=== PATIENT | male | born 1935 | race Caucasian/White ===

== ENCOUNTER → 2018-06-13 08:06 | Outpatient (CLI) | payer OTHER, SELFPAY ==
[2018-06-13 09:52] LABS: Add Manual Diff / Slide Review NO; Basophils Percent Auto 0.8 % (0-2); Hematocrit 44.5 % (41-53); Lymphocytes Percent Auto 27.4 % (25-40); Mean Corpuscular HGB Conc 33.7 % (30-36); Mean Corpuscular Hemoglobin 32.9 PG (26-34); Mean Corpuscular Volume 97.5 fL (80-100); Monocytes Percent Auto 11.2 % (3-14); Neutrophils Absolute Auto 2400 /uL (3000-5900); Neutrophils Percent Auto 57.6 % (50-75); Platelet Count 222 X10^3/uL (150-400); Red Blood Cell Count 4.57 X10^6/uL (4.5-5.9); Red Cell Distribution Width 13.5 % (11.6-14.8); White Blood Cell Count 4.2 X10^3/uL (4.5-11.0)
[2018-06-13 10:06] LABS: Cholesterol 212 mg/dL (140-199); HDL Cholesterol 88 mg/dL (40-60); LDL Cholesterol Calculated 111 mg/dL (<100); Triglycerides 65 mg/dL (35-150)
[2018-06-13 10:45] LABS: Thyroid Stimulating Hormone 3.51 uIU/mL (0.47-4.68)
== END ==
PROVIDERS: Family Provider Family Medicine; PCP Family Medicine; Visit Provider Family Medicine
DX: E78.2 Mixed hyperlipidemia (principal)
CPT/HCPCS: 36415; 80061; 84443; 85025

== ENCOUNTER 2018-08-21 08:57 | Day surgery (SDC) | payer OTHER, SELFPAY ==
[2018-08-21] MEDS: PROPARACAINE 0.5% OPHTH SOL 2 DROPS EYE-OP (09:55)
[2018-08-21 09:57] VITALS: BP 150/84; PULSE 62; RESP 16; TEMP 36.6; O2SAT 100; BMI 21.7
[2018-08-21] MEDS: CATARACT EYE COMPOUND (10 DROPS/SYRINGE) 3 DROPS EYE-OP (10:06)
--- NOTE | 2018-08-21 11:03 | P.OP.PRE_ITS ---
Pre-operative Note Interval Note Changes: No
--- NOTE | 2018-08-21 11:03 | PM.PREOP ---
Pre-operative Note Interval Note Changes: No
--- NOTE | 2018-08-21 11:11 | P.OP.PRE_ITS ---
Pre-operative Note Interval Note Changes: No
--- NOTE | 2018-08-21 11:11 | PM.PREOP ---
Pre-operative Note Interval Note Changes: No
--- NOTE | 2018-08-21 11:11 | PM.OP.1 ---
Operative Date/Time/Diagnoses Pre-op diagnosis: Nuclear cataract right eye Procedure & Clinicians Procedure: Cataract Surgery Same procedure as scheduled: Yes Surgeon: Dre Mcleod Anesthesia Type: MAC +/- and Sedation Operative Notes Procedure in detail: Patient brought to the operating suite. Tetracaine drops placed in the right eye. Marking instrument was used to david the verticle and horizontal meridian Patient was prepped and draped in sterile manner. Wire lid speculum was placed in the eye. Betadine drops were placed on the eye. This was irrigated. Lidocaine jelly was placed on the eye. A paracentesis port was created with a side-port blade. 0.1 mL 1% preservative free lidocaine was injected into the anterior chamber. The anterior chamber was deepened with viscoelastic. 2.6 mm keratome was used to create a temporal clear corneal incision. Cystotome and Utrata forceps were used to create continuous tear capsulorrhexis. Balanced salt solution was used to hydro dissect the nucleus. The phacoemulsification handpiece was inserted and the nucleus was removed using the stop and chop technique. The irrigation aspiration handpiece was inserted and the remaining cortex was removed. Anterior chamber was deepened with viscoelastic. An Lauren [id number] intraocular lens with a power of 16.5 was injected into the capsular bag. Irrigation aspiration handpiece was inserted and the remaining viscoelastic was removed. The lens was rotated to the 180 degree meridian. Incision was hydrated with balanced salt solution and found to be leak free with pressure with Weck-Cheryl sponges. 0.1 mL Vigamox injected anterior chamber. 0.3 mL Kenalog 10 mg was injected subconjunctivally. Lid speculum was removed. The patient left the operating room in excellent condition. Complications: none Condition: stable Disposition: same day surgery
[2018-08-21] MEDS: PHENYLEPHRINE/LIDOCAINE VIAL (OR) 0.2 ML EYE-OP (11:23)
[2018-08-21] MEDS: LIDOCAINE JELLY 2% 5 ML 1 APPLIC TOP (11:24)
[2018-08-21] MEDS: TRIAMCINOLONE 50 MG/5 ML VIAL INJ (11:24)
[2018-08-21] MEDS: CHONDROIDTIN/SOD HYALURONATE 1.05 ML SYRINGE INTRAOCULA (11:24)
[2018-08-21] MEDS: MOXIFLOXACIN OPHTH DROPS 3 ML BOTTLE 2 DROPS INJ (11:24)
[2018-08-21] MEDS: BALANCED SALT IRRIG SOLN NO.2 500 ML, EPINEPHrine 1 MG IRR (11:25)
[2018-08-21] MEDS: TETRACAINE 0.5% OPHTH DROPS 15 ML 2 DROPS EYE-RIGHT (11:25)
[2018-08-21 11:40] VITALS: BP 107/69; PULSE 52; RESP 18; TEMP 36.6; O2SAT 99
[2018-08-21 11:55] VITALS: BP 119/66; PULSE 59; RESP 16; TEMP 36.7; O2SAT 99
== END 2018-08-21 12:00 ==
LOC: OR 08:58
PROVIDERS: Family Provider Family Medicine; PCP Family Medicine; Visit Provider Ophthalmology
DX: H25.11 Age-related nuclear cataract, right eye (principal)
CPT/HCPCS: J0171; J2250; J3010; J3301; V2787

== ENCOUNTER 2018-09-04 08:56 | Day surgery (SDC) | payer OTHER, SELFPAY ==
[2018-09-04 09:27] VITALS: BMI 22.6
[2018-09-04] MEDS: PROPARACAINE 0.5% OPHTH SOL 2 DROPS EYE-OP (09:27)
[2018-09-04] MEDS: CATARACT EYE COMPOUND (10 DROPS/SYRINGE) 3 DROPS EYE-OP ×2 (09:30→09:44)
[2018-09-04 09:34] VITALS: BP 140/79; PULSE 62; RESP 18; TEMP 36.5; O2SAT 99
--- NOTE | 2018-09-04 10:14 | P.OP.PRE_ITS ---
Pre-operative Note Interval Note Changes: No
--- NOTE | 2018-09-04 10:14 | PM.PREOP ---
Pre-operative Note Interval Note Changes: No
--- NOTE | 2018-09-04 10:14 | PM.OP.1 ---
Operative Date/Time/Diagnoses Pre-op diagnosis: Nuclear Cataract Left eye Post-op diagnosis: same Procedure & Clinicians Surgeon: Dre Mcleod Anesthesia Type: MAC +/- and Sedation Operative Notes Procedure in detail: Patient brought to the operating suite. Tetracaine drops placed in the left eye. Marking instrument was used to david the vertcal and horizontal meridian. Patient was prepped and draped in sterile manner. Wire lid speculum was placed in the eye. Betadine drops were placed on the eye. This was irrigated. Lidocaine jelly was placed on the eye. A paracentesis port was created with a side-port blade. 0.1 mL 1% preservative free lidocaine was injected into the anterior chamber. The anterior chamber was deepened with viscoelastic. 2.6 mm keratome was used to create a temporal clear corneal incision. Cystotome and Utrata forceps were used to create continuous tear capsulorrhexis. Balanced salt solution was used to hydro dissect the nucleus. The phacoemulsification handpiece was inserted and the nucleus was removed using the stop and chop technique. The irrigation aspiration handpiece was inserted and the remaining cortex was removed. Anterior chamber was deepened with viscoelastic. An Lauren [id number] intraocular lens with a power of 20. was injected into the capsular bag. Irrigation aspiration handpiece was inserted and the remaining viscoelastic was removed. The lens was rotated to the 180 degree meridian. Incision was hydrated with balanced salt solution and found to be leak free with pressure with Weck-Cheryl sponges. 0.1 mL Vigamox injected anterior chamber. 0.3 mL Kenalog 10 mg was injected subconjunctivally. Lid speculum was removed. The patient left the operating room in excellent condition. Complications: none Condition: stable Disposition: same day surgery
--- NOTE | 2018-09-04 10:40 | SUR.OPER ---
Supine on eye stretcher, head on extension cradle secured with tape. Arms tucked at sides with blanket. Pillow under knees.
[2018-09-04] MEDS: LIDOCAINE JELLY 2% 5 ML 1 APPLIC TOP (10:41)
[2018-09-04] MEDS: CHONDROIDTIN/SOD HYALURONATE 1.05 ML SYRINGE INTRAOCULA (10:41)
[2018-09-04] MEDS: PHENYLEPHRINE/LIDOCAINE VIAL (OR) 0.2 ML EYE-OP (10:42)
[2018-09-04] MEDS: MOXIFLOXACIN OPHTH DROPS 3 ML BOTTLE 2 DROPS INJ (10:42)
[2018-09-04] MEDS: TRIAMCINOLONE 50 MG/5 ML VIAL INJ (10:43)
[2018-09-04] MEDS: TETRACAINE 0.5% OPHTH DROPS 15 ML 2 DROPS EYE-LEFT (10:43)
[2018-09-04] MEDS: BALANCED SALT IRRIG SOLN NO.2 500 ML, EPINEPHrine 1 MG IRR (10:44)
[2018-09-04 10:54] VITALS: BP 106/71; PULSE 54; RESP 16; TEMP 36.6; O2SAT 99
[2018-09-04 11:02] VITALS: BP 134/78
== END 2018-09-04 11:10 | disposition home or self-care (01) ==
PROVIDERS: PCP Family Medicine; Visit Provider Ophthalmology
DX: H25.12 Age-related nuclear cataract, left eye (principal)
CPT/HCPCS: J0171; J2250; J3010; J3301; V2787

== ENCOUNTER 2021-01-16 15:20 | Inpatient (IN) | payer MEDICARE, SELFPAY ==
[2021-01-16] VITALS (10 sets, daily range): BP systolic 102–167; BP diastolic 47–82; PULSE 51–94; RESP 14–19; TEMP 36.6–38.8; O2SAT 94–98; BMI 21.7; BMI 22.5
--- NOTE | 2021-01-16 | PATH_ITS ---
[facility] Accession Number: [id number] . 01 Material submitted: . appendix - APPENDIX . 02 Diagnosis: Appendix, Appendectomy: Marked acute appendicitis with mural abscess and serositis. No evidence of neoplasm. MRV 01/20/2021 1254 Local . 02 Electronically signed: . Kirk Irby MD, PhD, Pathologist NPI- [id number] . 01 Gross description: . The specimen is received in formalin, labeled appendix and consists of a 6.5 cm in length by 1.5 cm in diameter vermiform appendix with attached zhang-yellow lobulated mesoappendix measuring 4.5 x 2.0 x 1.0 cm. The serosa is zhang-pink and there is a 1.0 x 0.7 cm perforation site with surrounding adherent purulent exudate, located 4.5 cm from the margin. Sectioning reveals a zhang mucosa and a lumen measuring up to 1.0 cm in diameter. There is a 0.8 x 0.7 x 0.7 cm mucoid cyst adjacent to the tip of the appendix. The vermiform appendix is entirely submitted in cassettes A1-A8. ([id number]) /MRV 01/19/2021 1227 Local . 02 Pathologist provided ICD-10: K35.80 . 02 CPT . 988484 Performed at: 01 [facility] [address] [id number] MD Gregorio Bazan MD Phone: [phone] Performed at: 02 [facility] [place] [id number] [place], [place] [id number] MD Rachell Bauer MD Phone: [phone]
[2021-01-16 17:11] LABS: Bacteria Urine None Seen; RBC Urine None Seen (0-5/HPF); WBC Urine None Seen (0-5/HPF)
[2021-01-16 17:21] LABS: Appearance Urine UA CLEAR; Bilirubin Urine UA NEGATIVE (NEGATIVE); Color Urine UA YELLOW; Glucose Urine UA NEGATIVE (Negative); Ketones Urine UA 1+ (NEGATIVE); Leukocyte Esterase Urine UA NEGATIVE (NEGATIVE); Nitrite Urine UA NEGATIVE (Negative); Occult Blood Urine UA TRACE-INTACT (Negative); Protein Urine UA NEGATIVE (Negative); Urobilinogen Urine UA 0.2 E.U./dL (0.2); pH Urine UA 5.5 (4.5-8.0)
[2021-01-16 17:28] LABS: Add Manual Diff / Slide Review NO; Basophils Absolute Auto 0 /uL (0-100); Basophils Percent Auto 0.4 % (0-2); Eosinophils Absolute Auto 100 /uL (0-450); Eosinophils Percent Auto 0.7 % (2-4); Hematocrit 43.8 % (41-53); Hemoglobin 14.7 g/dL (13.5-17.5); Lymphocytes Absolute Auto 800 /uL (1100-4500); Lymphocytes Percent Auto 7.7 % (25-40); Mean Corpuscular HGB Conc 33.6 % (30-36); Mean Corpuscular Hemoglobin 32.9 PG (26-34); Mean Corpuscular Volume 97.9 fL (80-100); Monocytes Absolute Auto 500 /uL (0-900); Monocytes Percent Auto 4.8 % (3-14); Neutrophils Absolute Auto 9000 /uL (1500-7000); Neutrophils Percent Auto 86.4 % (50-75); Platelet Count 211 X10^3/uL (150-400); Red Blood Cell Count 4.47 X10^6/uL (4.5-5.9); Red Cell Distribution Width 13.3 % (11.6-14.8); White Blood Cell Count 10.4 X10^3/uL (4.5-11.0)
[2021-01-16] MEDS: SODIUM CHLORIDE 0.9% 1,000 ML 1000 ML IV ×2 (17:28→18:54)
[2021-01-16] MEDS: MORPHINE 2 MG/ML INJ IV (17:28)
[2021-01-16] MEDS: ONDANSETRON 4 MG/2 ML INJ IV ×2 (17:28→23:13)
--- NOTE | 2021-01-16 17:30 | ED_ITS ---
HPI - Abdominal Pain <BRE Acosta- - Last Filed: 01/16/21 19:53> General Chief Complaint: Abdominal Pain Stated Complaint: sudden, sharp, lwr right abdominal pain Time Seen by Provider: 01/16/21 16:49 Source: patient and family Mode of arrival: Ambulatory Limitations: no limitations History of Present Illness HPI narrative: The patient is an 85-year-old male nonsmoker with history of transient global amnesia who presents with his for sudden complaint of right lower quadrant pain approximately 90 minutes prior to arrival. He states he was sitting working on his computer and felt sudden pain in his right lower quadrant extending down. He states that wrapped to his testicles. He denies any dysuria urgency or frequency. He denies any rectal pain or pressure with bowel movements. States his bowel movements are normal. Complains of slight nausea, no vomiting. No fevers, did have some chills. Denies any history of abdominal surgeries. Only daily medication is a multivitamin. He does state that he drinks about half a L of red wine a night Related Data Home Medications Medication Instructions Recorded Confirmed [id number] acid 1 tab PO DAILY 08/21/18 01/16/21 [Multi-Day with Iron] Allergies Allergy/AdvReac Type Severity Reaction Status Date / Time Sulfa (Sulfonamide Allergy Mild RASH Verified 01/16/21 22:45 Antibiotics) [SULFA (SULFONAMIDE ANTIBIOTICS)] succinylcholine AdvReac Severe cholinesterase Verified 01/16/21 22:45 deficiency Review of Systems <[facility] - Last Filed: 01/16/21 19:53> Review of Systems Narrative: GENERAL: Denies chills, fatigue, malaise, fever, sweats. HEENT: Denies sinus pain, ear pain, sore throat, difficulty swallowing, dizziness. RESPIRATORY: Denies dyspnea, cough, wheezing, hemoptysis, sputum. CARDIOVASCULAR: Denies chest pain, palpitations, orthopnea, edema, GASTROINTESTINAL: See HPI : Denies dysuria, frequency, incontinence, hematuria, urinary retention. MUSCULOSKELETAL: denies weakness, joint pain, or bony pain SKIN: Denies rash, skin lesions, or other NEUROLOGIC: Denies weakness, headache, numbness, change in speech, confusion, seizures, incoordination. PSYCHIATRIC: No concerning psychosocial issues. 12 point review of systems is negative except for those stated above Patient History <MARVEL Acosta - Last Filed: 01/16/21 19:53> Medical History (Updated 01/16/21 @ 21:30 by Corazon Larios MD) Acne (~1951) Chicken pox (~1947) Cholinesterase deficiency Chronic back pain Measles (~1940) Mumps (~194) Seasonal allergies (~1959) Shoulder pain Tinnitus Surgical History Anesthesia Status post hernia repair (~2008) Status post knee surgery (~1987) Family History Father Hypertension High cholesterol Stroke Skin cancer Mother Hypertension High cholesterol Dementia Colon cancer Social History household members: spouse Smoking Status: Never smoker alcohol intake: current Smoking Status: Never smoker Exam <MARVEL Acosta - Last Filed: 01/16/21 19:53> Narrative Exam Narrative: GENERAL: This is a well-nourished, well-developed patient, in no acute distress HEAD: Atraumatic. Normocephalic. No temporal or scalp tenderness. EYES: Pupils equal round and reactive. Extraocular motions intact. No scleral icterus. No injection or drainage. ENT: Nose without bleeding, purulent drainage or septal hematoma. Wearing a mask. Airway patent. NECK: Trachea midline. No JVD or lymphadenopathy. Supple, nontender, no meni ngeal signs. CARDIOVASCULAR: Regular rate and rhythm RESPIRATORY: Clear to auscultation. Breath sounds equal bilaterally. No wheezes, rales, or rhonchi. No cough. No increased respiratory effort. No accessory muscle use. GASTROINTESTINAL: Abdomen with active bowel sounds all 4 quadrants, right lower quadrant pain to palpation with slight guarding noted, positive rebound tenderness, positive heel tap test. Diffuse tenderness to pain to palpation left lower quadrant no guarding. EXTREMITIES: No clubbing, cyanosis, or edema. No joint tenderness, effusion, or edema noted. BACK: Nontender without deformity or crepitance. No flank tenderness. NEURO: AOx3. SKIN: No rash or erythema on visible skin Initial Vital Signs Initial Vital Signs: Vital Signs Temperature 97.9 F 01/16/21 15:28 Pulse Rate 53 L 01/16/21 15:28 Respiratory Rate 16 01/16/21 15:28 Blood Pressure 153/76 H 01/16/21 15:28 Pulse Oximetry 97 01/16/21 15:28 <Shereen Arce MD - Last Filed: 01/17/21 06:59> Initial Vital Signs Initial Vital Signs: Vital Signs Temperature 97.9 F 01/16/21 15:28 Pulse Rate 53 L 01/16/21 15:28 Respiratory Rate 16 01/16/21 15:28 Blood Pressure 153/76 H 01/16/21 15:28 Pulse Oximetry 97 01/16/21 15:28 Scores <MARVEL Acosta - Last Filed: 01/16/21 19:53> GCS Tanisha coma scale eye opening: Spontaneous Greer coma scale verbal response: Orientated Tanisha coma scale motor response: Obey commands Gre[place] coma scale total score: 15 Course <MARVEL Acosta - Last Filed: 01/16/21 19:53> Orders Ordered: Acetaminophen (Acetaminophen 325 Mg Tablet) 650 mg PO Q6HR PRN PRN Reason: Pain, Mild (1-3) Diphenhydramine HCl (Diphenhydramine 50 Mg/Ml Vial) 25 mg IV Q6HR PRN PRN Reason: Itching Docusate Sodium (Docusate 100 Mg Capsule) 100 mg PO BID [facility] Sodium Chloride (Normal Saline 0.9%) 1,000 mls @ 50 mls/hr IV CONT [facility] Last Admin: 01/16/21 23:55 Dose: 50 mls/hr Documented by: MATT Piperacillin/Tazobactam/Dextrose (Zosyn) 3.375 gm in 50 mls @ 100 mls/hr IV Q6H [facility] Last Admin: 01/17/21 03:07 Dose: 100 mls/hr Documented by: MATT Morphine Sulfate (Morphine 2 Mg/Ml Inj) 2 mg IV Q4HR PRN PRN Reason: Pain, Moderate (4-6) Naloxone HCl (Naloxone 0.4 Mg/Ml Vial) 0.2 mg IV Q2MIN PRN PRN Reason: Opiate Reversal Ondansetron HCl (Ondansetron 4 Mg/2 Ml Inj) 4 mg IV Q4HR PRN PRN Reason: Nausea And Vomiting Oxycodone HCl (Oxycodone Ir 5 Mg Tablet) 5 mg PO Q6HR PRN PRN Reason: Pain, Moderate (4-6) Discontinued Medications Bupivacaine HCl/Epinephrine Bitart (Bupivacaine 0.5% W/ Epi (Pf) 30 Ml Vial) 30 ml INJ NOW ONE Stop: 01/16/21 22:02 Last Admin: 01/16/21 22:01 Dose: 30 ml Documented by: MARGARET Fentanyl (Fentanyl 100 Mcg/2 Ml Inj) 0 mcg IV Q5MIN PRN PRN Reason: Pain, Severe (7-10) Hydromorphone HCl (Hydromorphone 2 Mg Inj) 0 mg IV Q5MIN PRN PRN Reason: Pain, Mild (1-3) Sodium Chloride (Normal Saline 0.9%) 1,000 mls @ 1,000 mls/hr IV BOLUS ONE Stop: 01/16/21 18:18 Last Infusion: 01/16/21 18:57 Dose: 0 mls/hr Documented by: Admin: 01/16/21 17:28 Dose: 1,000 mls/hr Documented by: DA Sodium Chloride (Normal Saline 0.9%) 1,000 mls @ 1,000 mls/hr IV BOLUS ONE Stop: 01/16/21 19:44 Last Infusion: 01/16/21 20:03 Dose: 0 mls/hr Documented by: Admin: 01/16/21 18:54 Dose: 1,000 mls/hr Documented by: DA Piperacillin Sod/Tazobactam (Sod 4.5 gm/ Sodium Chloride) 100 mls @ 200 mls/hr IV NOW ONE Stop: 01/16/21 19:42 Last Infusion: 01/16/21 20:35 Dose: 0 mls/hr Documented by: Admin: 01/16/21 20:11 Dose: 200 mls/hr Documented by: DA Sodium Chloride (Normal Saline 0.9%) 1,000 mls @ 150 mls/hr IV CONT [facility] Last Admin: 01/17/21 01:27 Dose: Not Given Documented by: MATT Lactated Ringer's (Lactated Ringers) 1,000 mls @ 42 mls/hr IV CONT [facility] Last Infusion: 01/16/21 23:17 Dose: 42 mls/hr Documented by: Admin: 01/16/21 22:05 Dose: 42 mls/hr Documented by: Infusion: 01/16/21 22:05 Dose: 42 mls/hr Documented by: Admin: 01/16/21 21:28 Dose: 42 mls/hr Documented by: EPI Lactated Ringer's (Lactated Ringers) 1,000 mls @ 120 mls/hr IV CONT [facility] Last Admin: 01/17/21 01:28 Dose: Not Given Documented by: MATT Morphine Sulfate (Morphine 2 Mg/Ml Inj) 2 mg IV NOW ONE Stop: 01/16/21 17:20 Last Admin: 01/16/21 17:28 Dose: 2 mg Documented by: DA Morphine Sulfate (Morphine 2 Mg/Ml Inj) 2 mg IV Q2HR PRN PRN Reason: Pain, Moderate (4-6) Ondansetron HCl (Ondansetron 4 Mg/2 Ml Inj) 4 mg IV NOW ONE Stop: 01/16/21 17:20 Last Admin: 01/16/21 17:28 Dose: 4 mg Documented by: DA Ondansetron HCl (Ondansetron 4 Mg/2 Ml Inj) 4 mg IV Q4HR PRN PRN Reason: Nausea And Vomiting Ondansetron HCl (Ondansetron 4 Mg/2 Ml Inj) 4 mg IV NOW PRN PRN Reason: Nausea And Vomiting Last Admin: 01/16/21 23:13 Dose: 4 mg Documented by: EPI Oxycodone HCl (Oxycodone Ir 5 Mg Tablet) 5 mg PO PACUNOW PRN PRN Reason: Mild or moderate pain Last Admin: 01/16/21 23:13 Dose: 5 mg Documented by: EPI Vital Signs Vital signs: Vital Signs - 8 hr 01/16/21 15:28 01/16/21 18:59 Temperature 97.9 F Pulse Rate 53 L 80 Respiratory Rate 16 14 Blood Pressure 153/76 H 155/70 H Pulse Oximetry 97 97 <Shereen Arce MD - Last Filed: 01/17/21 06:59> Orders Ordered: Acetaminophen (Acetaminophen 325 Mg Tablet) 650 mg PO Q6HR PRN PRN Reason: Pain, Mild (1-3) Diphenhydramine HCl (Diphenhydramine 50 Mg/Ml Vial) 25 mg IV Q6HR PRN PRN Reason: Itching Docusate Sodium (Docusate 100 Mg Capsule) 100 mg PO BID [facility] Sodium Chloride (Normal Saline 0.9%) 1,000 mls @ 50 mls/hr IV CONT [facility] Last Admin: 01/16/21 23:55 Dose: 50 mls/hr Documented by: MTAT Piperacillin/Tazobactam/Dextrose (Zosyn) 3.375 gm in 50 mls @ 100 mls/hr IV Q6H [facility] Last Admin: 01/17/21 03:07 Dose: 100 mls/hr Documented by: MATT Morphine Sulfate (Morphine 2 Mg/Ml Inj) 2 mg IV Q4HR PRN PRN Reason: Pain, Moderate (4-6) Naloxone HCl (Naloxone 0.4 Mg/Ml Vial) 0.2 mg IV Q2MIN PRN PRN Reason: Opiate Reversal Ondansetron HCl (Ondansetron 4 Mg/2 Ml Inj) 4 mg IV Q4HR PRN PRN Reason: Nausea And Vomiting Oxycodone HCl (Oxycodone Ir 5 Mg Tablet) 5 mg PO Q6HR PRN PRN Reason: Pain, Moderate (4-6) Discontinued Medications Bupivacaine HCl/Epinephrine Bitart (Bupivacaine 0.5% W/ Epi (Pf) 30 Ml Vial) 30 ml INJ NOW ONE Stop: 01/16/21 22:02 Last Admin: 01/16/21 22:01 Dose: 30 ml Documented by: MARGARET Fentanyl (Fentanyl 100 Mcg/2 Ml Inj) 0 mcg IV Q5MIN PRN PRN Reason: Pain, Severe (7-10) Hydromorphone HCl (Hydromorphone 2 Mg Inj) 0 mg IV Q5MIN PRN PRN Reason: Pain, Mild (1-3) Sodium Chloride (Normal Saline 0.9%) 1,000 mls @ 1,000 mls/hr IV BOLUS ONE Stop: 01/16/21 18:18 Last Infusion: 01/16/21 18:57 Dose: 0 mls/hr Documented by: Admin: 01/16/21 17:28 Dose: 1,000 mls/hr Documented by: DA Sodium Chloride (Normal Saline 0.9%) 1,000 mls @ 1,000 mls/hr IV BOLUS ONE Stop: 01/16/21 19:44 Last Infusion: 01/16/21 20:03 Dose: 0 mls/hr Documented by: Admin: 01/16/21 18:54 Dose: 1,000 mls/hr Documented by: DA Piperacillin Sod/Tazobactam (Sod 4.5 gm/ Sodium Chloride) 100 mls @ 200 mls/hr IV NOW ONE Stop: 01/16/21 19:42 Last Infusion: 01/16/21 20:35 Dose: 0 mls/hr Documented by: Admin: 01/16/21 20:11 Dose: 200 mls/hr Documented by: DA Sodium Chloride (Normal Saline 0.9%) 1,000 mls @ 150 mls/hr IV CONT [facility] Last Admin: 01/17/21 01:27 Dose: Not Given Documented by: MATT Lactated Ringer's (Lactated Ringers) 1,000 mls @ 42 mls/hr IV CONT [facility] Last Infusion: 01/16/21 23:17 Dose: 42 mls/hr Documented by: Admin: 01/16/21 22:05 Dose: 42 mls/hr Documented by: Infusion: 01/16/21 22:05 Dose: 42 mls/hr Documented by: Admin: 01/16/21 21:28 Dose: 42 mls/hr Documented by: EPI Lactated Ringer's (Lactated Ringers) 1,000 mls @ 120 mls/hr IV CONT [facility] Last Admin: 01/17/21 01:28 Dose: Not Given Documented by: MATT Morphine Sulfate (Morphine 2 Mg/Ml Inj) 2 mg IV NOW ONE Stop: 01/16/21 17:20 Last Admin: 01/16/21 17:28 Dose: 2 mg Documented by: DA Morphine Sulfate (Morphine 2 Mg/Ml Inj) 2 mg IV Q2HR PRN PRN Reason: Pain, Moderate (4-6) Ondansetron HCl (Ondansetron 4 Mg/2 Ml Inj) 4 mg IV NOW ONE Stop: 01/16/21 17:20 Last Admin: 01/16/21 17:28 Dose: 4 mg Documented by: DA Ondansetron HCl (Ondansetron 4 Mg/2 Ml Inj) 4 mg IV Q4HR PRN PRN Reason: Nausea And Vomiting Ondansetron HCl (Ondansetron 4 Mg/2 Ml Inj) 4 mg IV NOW PRN PRN Reason: Nausea And Vomiting Last Admin: 01/16/21 23:13 Dose: 4 mg Documented by: EPI Oxycodone HCl (Oxycodone Ir 5 Mg Tablet) 5 mg PO PACUNOW PRN PRN Reason: Mild or moderate pain Last Admin: 01/16/21 23:13 Dose: 5 mg Documented by: EPI Vital Signs Vital signs: Vital Signs - 8 hr 01/16/21 15:28 01/16/21 18:59 Temperature 97.9 F Pulse Rate 53 L 80 Respiratory Rate 16 14 Blood Pressure 153/76 H 155/70 H Pulse Oximetry 97 97 MDM - Abdominal Pain <SARAH Acosta - Last Filed: 01/16/21 19:53> Lab Data Attestation: I reviewed the patient's lab results. Result diagrams: 01/17/21 05:15 01/17/21 05:15 Labs: Lab Results 01/16/21 01/16/21 01/16/21 Range/Units 15:34 17:16 17:16 WBC 10.4 (4.5-11.0) X10^3/uL RBC 4.47 L (4.5-5.9) X10^6/uL Hgb 14.7 (13.5-17.5) g/dL Hct 43.8 (41-53) % MCV 97.9 (80-100) fL MCH 32.9 (26-34) PG MCHC 33.6 (30-36) % RDW 13.3 (11.6-14.8) % Plt Count 211 (150-400) X10^3/uL Neut % (Auto) 86.4 H (50-75) % Lymph % (Auto) 7.7 L (25-40) % [place] % (Auto) 4.8 (3-14) % Eos % (Auto) 0.7 L (2-4) % Baso % (Auto) 0.4 (0-2) % Neut # (Auto) 9000 H (9586-1467) /uL Lymph # (Auto) 800 L (1459-5075) /uL [place] # (Auto) 500 (0-900) /uL Eos # (Auto) 100 (0-450) /uL Baso # (Auto) 0 (0-100) /uL PT 11.8 (10.1-12.7) SECONDS INR 1.0 (0.9-1.3) APTT 31 (26.4-36.2) SECONDS Sodium (137-145) mmol/L Potassium (3.4-5.1) mmol/L Chloride (98-107) mmol/L Carbon Dioxide (22-32) mmol/L BUN (9-20) mg/dL Creatinine (0.66-1.25) mg/dL Estimated GFR (>60) mL/min BUN/Creatinine Ratio (6-22) Glucose (80-110) mg/dL Lactate (0.7-2.1) mmol/L Calcium (8.4-10.2) mg/dL Total Bilirubin (0.2-1.3) mg/dL AST (17-59) IU/L ALT (<50) IU/L Alkaline Phosphatase (38-126) U/L Total Protein (6.3-8.2) g/dL Albumin (3.5-5.0) g/dL Globulin (1.7-4.1) g/dL Albumin/Globulin Ratio (1.0-2.8) Lipase (23-300) U/L Urine Color Yellow Urine Appearance Clear Urine pH 5.5 (4.5-8.0) Ur Specific [place] 1.020 (1.000-1.035) Urine Protein Negative (Negative) Urine Glucose (UA) Negative (Negative) g/dL Urine Ketones 1+ H (NEGATIVE) Urine Occult Blood Trace-intact (Negative) Urine Nitrate Negative (Negative) Urine Bilirubin Negative (NEGATIVE) Urine Urobilinogen 0.2 (0.2) E.U./dL Ur Leukocyte Esterase Negative (NEGATIVE) Urine RBC None seen (0-5/HPF) Urine WBC None seen (0-5/HPF) Urine Bacteria None seen (None) Ur Culture Indicated? Cult not indicated SARS-CoV-2 (PCR) (Negative) 03/13/21 03/13/21 03/13/21 Range/Units 17:16 17:16 19:27 WBC (4.5-11.0) X10^3/uL RBC (4.5-5.9) X10^6/uL Hgb (13.5-17.5) g/dL Hct (41-53) % MCV (80-100) fL MCH (26-34) PG MCHC (30-36) % RDW (11.6-14.8) % Plt Count (150-400) X10^3/uL Neut % (Auto) (50-75) % Lymph % (Auto) (25-40) % [place] % (Auto) (3-14) % Eos % (Auto) (2-4) % Baso % (Auto) (0-2) % Neut # (Auto) (9991-6919) /uL Lymph # (Auto) (0204-3131) /uL [place] # (Auto) (0-900) /uL Eos # (Auto) (0-450) /uL Baso # (Auto) (0-100) /uL PT (10.1-12.7) SECONDS INR (0.9-1.3) APTT (26.4-36.2) SECONDS Sodium 136 L (137-145) mmol/L Potassium 3.6 (3.4-5.1) mmol/L Chloride 104 (98-107) mmol/L Carbon Dioxide 26 (22-32) mmol/L BUN 21 H (9-20) mg/dL Creatinine 0.94 (0.66-1.25) mg/dL Estimated GFR > 60.0 (>60) mL/min BUN/Creatinine Ratio 22.3 H (6-22) Glucose 114 H (80-110) mg/dL Lactate 1.4 (0.7-2.1) mmol/L Calcium 9.4 (8.4-10.2) mg/dL Total Bilirubin 0.6 (0.2-1.3) mg/dL AST 34 (17-59) IU/L ALT 16 (<50) IU/L Alkaline Phosphatase 51 (38-126) U/L Total Protein 6.9 (6.3-8.2) g/dL Albumin 4.2 (3.5-5.0) g/dL Globulin 2.7 (1.7-4.1) g/dL Albumin/Globulin Ratio 1.6 (1.0-2.8) Lipase 965 H (23-300) U/L Urine Color Urine Appearance Urine pH (4.5-8.0) Ur Specific [place] (1.000-1.035) Urine Protein (Negative) Urine Glucose (UA) (Negative) g/dL Urine Ketones (NEGATIVE) Urine Occult Blood (Negative) Urine Nitrate (Negative) Urine Bilirubin (NEGATIVE) Urine Urobilinogen (0.2) E.U./dL Ur Leukocyte Esterase (NEGATIVE) Urine RBC (0-5/HPF) Urine WBC (0-5/HPF) Urine Bacteria (None) Ur Culture Indicated? SARS-CoV-2 (PCR) Negative (Negative) Imaging Data CT scan - abdomen/pelvis: Radiologist's Impression: [address] [place] [id number] Scan ReportSigned Patient: Bacilio Aragon JMR#: [id number]: 8Acct:[id number]/Sex: 85 / MDate of Service: 01/16/21Loc: EDAccession Number: [id number] Procedure: CT abdomen pelvis w con Ordering Provider: Margaret EscalanteP- PROCEDURE: CT ABDOMEN PELVIS W CON INDICATIONS: rlq pain, lipase 965 TECHNIQUE: After the administration of intravenous contrast, 5 mm thick sections acquired from the diaphragm to the symphysis. 5 mm coronal and sagittal reformats were acquired. For radiation dose reduction, the following was used: automated exposure control, adjustment of mA and/or kV according to patient size. COMPARISON: [facility], CT, ABDOMEN/PELVIS WITH CONTRAST, 10/26/2015, 9:52. FINDINGS: Image quality: Excellent. ABDOMEN: Lung bases: Lung bases are clear. Heart size is normal. Solid organs: Liver is enlarged. Multiple low-attenuation hepatic focus are again noted, unchanged compared to prior exam. Gallbladder is unremarkable. Biliary system is non dilated. Pancreas enhances normally. Spleen is normal in size and enhancement. No adrenal nodules. Kidneys demonstrate normal size and enhancement, without hydronephrosis. Low-attenuation renal foci most suggestive of cysts are unchanged. Peritoneum and bowel: Bowel loops are nonobstructive. There is ill-defined soft tissue density and strandy fluid within the right lower quadrant. This is in the region of where the appendix was identified on the 2015 exam. The appendix is not clearly delineated on current exam.. No free air. Mild pelvic fluid is present. Moder ate colonic stool. Nodes and vessels: No retroperitoneal or mesenteric adenopathy by size criteri a. Aorta and inferior vena cava are normal in size. Miscellaneous: No ventral hernias. PELVIS: Genitourinary: Bladder wall thickness is normal. Miscellaneous: No inguinal hernias or adenopathy. Bones: No suspicious bony lesions. No vertebral body compression fractures. IMPRESSION: 1. Ill-defined soft tissue density in fluid within the right lower quadrant as well as mild dependent pelvic fluid. While the appendix is not clearly defined, given the area of above described inflammation corresponds to approximate location of appendix on 2015 exam, there is suspicion for appendicitis/ruptured appendix. 2. Multiple hepatic cysts. The above findings were discussed with Margaret Escalante on 01/16/2021 at 650 p.m.. Dictated by: Katia Carver M.D. on 01/16/2021 at 18:41 Approved by: Katia Carver M.D. on 01/16/2021 at 19:00 [facility] Narrative Medical decision making narrative: The patient is an 85-year-old male nonsmoker who denies pertinent medical history presents with a chief complaint of right lower quadrant pain. He is not to have significant pain to palpation, no elevated white blood cell count, noted to have elevated lipase. Thus I did get a CT scan which was concerning for a possible ruptured appendicitis. However his pancreas looks appropriate on scanning. Given Radiology concerns, I spoke with Dr. Hernandez who states that she will be in to evaluate the patient. Elected to start patient on Zosyn, admit to floor given emergency department come past today and she will evaluate him on the floor. Patient has had slight dose of morphine and Zofran throughout his stay, has declined further need of pain medications. Coronavirus test is pending. Patient expressed appreciation and understanding of plan. <Shereen Arce MD - Last Filed: 01/17/21 06:59> Lab Data Labs: Lab Results 01/16/21 01/16/21 01/16/21 Range/Units 15:34 17:16 17:16 WBC 10.4 (4.5-11.0) X10^3/uL RBC 4.47 L (4.5-5.9) X10^6/uL Hgb 14.7 (13.5-17.5) g/dL Hct 43.8 (41-53) % MCV 97.9 (80-100) fL MCH 32.9 (26-34) PG MCHC 33.6 (30-36) % RDW 13.3 (11.6-14.8) % Plt Count 211 (150-400) X10^3/uL Neut % (Auto) 86.4 H (50-75) % Lymph % (Auto) 7.7 L (25-40) % [place] % (Auto) 4.8 (3-14) % Eos % (Auto) 0.7 L (2-4) % Baso % (Auto) 0.4 (0-2) % Neut # (Auto) 9000 H (8477-8084) /uL Lymph # (Auto) 800 L (7525-4234) /uL [place] # (Auto) 500 (0-900) /uL Eos # (Auto) 100 (0-450) /uL Baso # (Auto) 0 (0-100) /uL PT 11.8 (10.1-12.7) SECONDS INR 1.0 (0.9-1.3) APTT 31 (26.4-36.2) SECONDS Sodium (137-145) mmol/L Potassium (3.4-5.1) mmol/L Chloride (98-107) mmol/L Carbon Dioxide (22-32) mmol/L BUN (9-20) mg/dL Creatinine (0.66-1.25) mg/dL Estimated GFR (>60) mL/min BUN/Creatinine Ratio (6-22) Glucose (80-110) mg/dL Lactate (0.7-2.1) mmol/L Calcium (8.4-10.2) mg/dL Total Bilirubin (0.2-1.3) mg/dL AST (17-59) IU/L ALT (<50) IU/L Alkaline Phosphatase (38-126) U/L Total Protein (6.3-8.2) g/dL Albumin (3.5-5.0) g/dL Globulin (1.7-4.1) g/dL Albumin/Globulin Ratio (1.0-2.8) Lipase (23-300) U/L Urine Color Yellow Urine Appearance Clear Urine pH 5.5 (4.5-8.0) Ur Specific [place] 1.020 (1.000-1.035) Urine Protein Negative (Negative) Urine Glucose (UA) Negative (Negative) g/dL Urine Ketones 1+ H (NEGATIVE) Urine Occult Blood Trace-intact (Negative) Urine Nitrate Negative (Negative) Urine Bilirubin Negative (NEGATIVE) Urine Urobilinogen 0.2 (0.2) E.U./dL Ur Leukocyte Esterase Negative (NEGATIVE) Urine RBC None seen (0-5/HPF) Urine WBC None seen (0-5/HPF) Urine Bacteria None seen (None) Ur Culture Indicated? Cult not indicated SARS-CoV-2 (PCR) (Negative) 01/16/21 01/16/21 01/16/21 Range/Units 17:16 17:16 19:27 WBC (4.5-11.0) X10^3/uL RBC (4.5-5.9) X10^6/uL Hgb (13.5-17.5) g/dL Hct (41-53) % MCV (80-100) fL MCH (26-34) PG MCHC (30-36) % RDW (11.6-14.8) % Plt Count (150-400) X10^3/uL Neut % (Auto) (50-75) % Lymph % (Auto) (25-40) % [place] % (Auto) (3-14) % Eos % (Auto) (2-4) % Baso % (Auto) (0-2) % Neut # (Auto) (0295-5964) /uL Lymph # (Auto) (3736-4768) /uL [place] # (Auto) (0-900) /uL Eos # (Auto) (0-450) /uL Baso # (Auto) (0-100) /uL PT (10.1-12.7) SECONDS INR (0.9-1.3) APTT (26.4-36.2) SECONDS Sodium 136 L (137-145) mmol/L Potassium 3.6 (3.4-5.1) mmol/L Chloride 104 (98-107) mmol/L Carbon Dioxide 26 (22-32) mmol/L BUN 21 H (9-20) mg/dL Creatinine 0.94 (0.66-1.25) mg/dL Estimated GFR > 60.0 (>60) mL/min BUN/Creatinine Ratio 22.3 H (6-22) Glucose 114 H (80-110) mg/dL Lactate 1.4 (0.7-2.1) mmol/L Calcium 9.4 (8.4-10.2) mg/dL Total Bilirubin 0.6 (0.2-1.3) mg/dL AST 34 (17-59) IU/L ALT 16 (<50) IU/L Alkaline Phosphatase 51 (38-126) U/L Total Protein 6.9 (6.3-8.2) g/dL Albumin 4.2 (3.5-5.0) g/dL Globulin 2.7 (1.7-4.1) g/dL Albumin/Globulin Ratio 1.6 (1.0-2.8) Lipase 965 H (23-300) U/L Urine Color Urine Appearance Urine pH (4.5-8.0) Ur Specific [place] (1.000-1.035) Urine Protein (Negative) Urine Glucose (UA) (Negative) g/dL Urine Ketones (NEGATIVE) Urine Occult Blood (Negative) Urine Nitrate (Negative) Urine Bilirubin (NEGATIVE) Urine Urobilinogen (0.2) E.U./dL Ur Leukocyte Esterase (NEGATIVE) Urine RBC (0-5/HPF) Urine WBC (0-5/HPF) Urine Bacteria (None) Ur Culture Indicated? SARS-CoV-2 (PCR) Negative (Negative) Discharge Plan Departure Patient Disposition: Admitted as Observation Clinical Impression: Acute appendicitis Qualifiers: Acute appendicitis type: unspecified acute appendicitis type Qualified Code(s): K35.80 - Unspecified acute appendicitis Abdominal pain Qualifiers: Abdominal location: right lower quadrant Qualified Code(s): R10.31 - Right lower quadrant pain Admit Date/Time: 01/16/21 19:40 Admit Provider: Raine Hernandez <Shereen Arce MD - Last Filed: 01/17/21 06:59> Cosign ED Attending Cosignature Attestation: I was immediately available in the department for consultation throughout this patient's visit. I agree with documentation as above. Shereen Arce MD
[2021-01-16 17:40] LABS: Culture Indicated Urine Cult Not Indicated
[2021-01-16 17:46] LABS: Prothrombin Time 11.8 SECONDS (10.1-12.7)
[2021-01-16 17:48] LABS: PTT Partial Thromboplastin Tim 31 SECONDS (26.4-36.2)
[2021-01-16 18:06] LABS: Alanine Aminotransferase 16 IU/L (<50); Albumin 4.2 g/dL (3.5-5.0); Albumin Globulin Ratio 1.6 (1.0-2.8); Alkaline Phosphatase 51 U/L (38-126); Aspartate Aminotransferase 34 IU/L (17-59); BUN Creatinine Ratio 22.3 (6-22); Bilirubin Total 0.6 mg/dL (0.2-1.3); Blood Urea Nitrogen 21 mg/dL (9-20); Calcium 9.4 mg/dL (8.4-10.2); Carbon Dioxide 26 mmol/L (22-32); Chloride 104 mmol/L (98-107); Estimated Glomerular Filt Rate > 60.0 mL/min (>60); Globulin 2.7 g/dL (1.7-4.1); Glucose 114 mg/dL (80-110); HEMOLYSIS < 15 (0-50); Lipase 965 U/L (23-300); Potassium 3.6 mmol/L (3.4-5.1); Sodium 136 mmol/L (137-145); Total Protein 6.9 g/dL (6.3-8.2)
--- NOTE | 2021-01-16 18:11 | DI.CT.S_ITS ---
PROCEDURE: CT ABDOMEN PELVIS W CON INDICATIONS: rlq pain, lipase 965 TECHNIQUE: After the administration of intravenous contrast, 5 mm thick sections acquired from the diaphragm to the symphysis. 5 mm coronal and sagittal reformats were acquired. For radiation dose reduction, the following was used: automated exposure control, adjustment of mA and/or kV according to patient size. COMPARISON: [facility], CT, ABDOMEN/PELVIS WITH CONTRAST, 10/26/2015, 9:52. FINDINGS: Image quality: Excellent. ABDOMEN: Lung bases: Lung bases are clear. Heart size is normal. Solid organs: Liver is enlarged. Multiple low-attenuation hepatic focus are again noted, unchanged compared to prior exam. Gallbladder is unremarkable. Biliary system is non dilated. Pancreas enhances normally. Spleen is normal in size and enhancement. No adrenal nodules. Kidneys demonstrate normal size and enhancement, without hydronephrosis. Low-attenuation renal foci most suggestive of cysts are unchanged. Peritoneum and bowel: Bowel loops are nonobstructive. There is ill-defined soft tissue density and strandy fluid within the right lower quadrant. This is in the region of where the appendix was identified on the 2015 exam. The appendix is not clearly delineated on current exam.. No free air. Mild pelvic fluid is present. Moderate colonic stool. Nodes and vessels: No retroperitoneal or mesenteric adenopathy by size criteria. Aorta and inferior vena cava are normal in size. Miscellaneous: No ventral hernias. PELVIS: Genitourinary: Bladder wall thickness is normal. Miscellaneous: No inguinal hernias or adenopathy. Bones: No suspicious bony lesions. No vertebral body compression fractures. IMPRESSION: 1. Ill-defined soft tissue density in fluid within the right lower quadrant as well as mild dependent pelvic fluid. While the appendix is not clearly defined, given the area of above described inflammation corresponds to approximate location of appendix on 2015 exam, there is suspicion for appendicitis/ruptured appendix. 2. Multiple hepatic cysts. The above findings were discussed with Margaret Escalante on 01/16/2021 at 650 p.m.. Dictated by: Katia Carver M.D. on 01/16/2021 at 18:41 Approved by: Katia Carver M.D. on 01/16/2021 at 19:00
[2021-01-16 19:42] LABS: Lactate (Lactic Acid) 1.4 mmol/L (0.7-2.1)
[2021-01-16 20:04] LABS: COVID19 -Nasal RAPID Negative (Negative)
[2021-01-16] MEDS: PIPERACILLIN/TAZO 4.5 GM in SODIUM CHLORIDE 0.9% 100 ML 200 ML IV (20:11)
--- NOTE | 2021-01-16 20:33 | PM.HP.1 ---
History of Present Illness History of Present Illness Date Patient Seen: 01/16/21 Time Patient Seen: 20:34 Chief complaint: sudden, sharp, lwr right abdominal pain Narrative: This is an 85 yo man who comes in with acute onset of RLQ pain at about 3:00PM. He denies any prodromic symptoms. He reports that he was playing video games and suddenly felt like he was shot in the abdomen. He denies fevers/chills/nausea/dysuria/diarrhea/constipation. He says his last colonoscopy was about five years ago and was normal. His mother had colon cancer, and so he has been on a high risk screening protocol. CT scan in the ER shows a fluid collection where the appendix was seen on a prior CT, suspicious for ruptured appendicitis. ROS: GENERAL: Denies chills, fatigue, malaise, fever, sweats. HEENT: Denies sinus pain, ear pain, sore throat, difficulty swallowing, dizziness. RESPIRATORY: Denies dyspnea, cough, wheezing, hemoptysis, sputum. CARDIOVASCULAR: Denies chest pain, palpitations, orthopnea, edema, GASTROINTESTINAL: See HPI : Denies dysuria, frequency, incontinence, hematuria, urinary retention. MUSCULOSKELETAL: denies weakness, joint pain, or bony pain SKIN: Denies rash, skin lesions, or other NEUROLOGIC: Denies weakness, headache, numbness, change in speech, confusion, seizures, incoordination. PSYCHIATRIC: No concerning psychosocial issues. PE: GENERAL: Well groomed and cooperative. Appears stated age. Answers questions promptly and appropriately. Vital signs noted. HENT: Normocephalic, atraumatic. Hearing intact. EYES: Conjunctiva pink, sclera white, no periorbital swelling. CARDIOVASCULAR: Regular rate. No pedal edema. RESPIRATORY: Non-tachypneic, breathing comfortably on room air. GASTROINTESTINAL: Abdomen soft and non-distended; mild TTP in RLQ; negative Rovsing sign GENITALURINARY: No flank tenderness. MUSCULOSKELETAL: Equal tone and mass bilaterally. SKIN: Warm, dry, soft, appropriate color for ethnicity. No other lesions, rashes, or wounds. NEURO: Alert and Oriented X 3. No gross sensory deficits, or cognitive issues. PSYCH: Appropriate affect and mood. Patient History Medical History Acne (~1952) Chicken pox (~1947) Chronic back pain Measles (~1939) Mumps (~1942) Seasonal allergies (~1959) Shoulder pain Tinnitus Surgical History Anesthesia Status post hernia repair (~2008) Status post knee surgery (~1987) Family & Social History Family History Father Hypertension High cholesterol Stroke Skin cancer Mother Hypertension High cholesterol Dementia Colon cancer Social History: household members spouse Safety & Behavioral: Feels Safe in Current Yes Environment Been Physically Hurt or No Threatened By a Person Tobacco & Substance use: Smoking Status Never smoker Meds Home Medications and Allergies Home Medications Medication Instructions Recorded Confirmed Type kdxwozgzsyyk-hpda-ugcad acid 1 tab PO DAILY 08/21/18 01/16/21 History [Multi-Day with Iron] Allergies Allergy/AdvReac Type Severity Reaction Status Date / Time Sulfa (Sulfonamide Allergy Mild RASH Verified 01/16/21 17:08 Antibiotics) [SULFA (SULFONAMIDE ANTIBIOTICS)] Exam Vital Signs (past 8 hours): - 01/16/21 15:28 01/16/21 18:59 Temperature 97.9 F Pulse Rate 53 L 80 Respiratory Rate 16 14 Blood Pressure 153/76 H 155/70 H Pulse Oximetry 97 97 Oxygen Delivery Method Room Air Objective Imaging CT scan - abdomen: Radiologist's impression: [address] [id number] Scan ReportSigned Patient: Bacilio Aragon JMR#: [id number]: 8Acct:[id number]/Sex: 85 / MDate of Service: 01/16/21Loc: EDAccession Number: [id number] Procedure: CT abdomen pelvis w con Ordering Provider: Margaret Escalante PROCEDURE: CT ABDOMEN PELVIS W CON INDICATIONS: rlq pain, lipase 965 TECHNIQUE: After the administration of intravenous contrast, 5 mm thick sections acquired from the diaphragm to the symphysis. 5 mm coronal and sagittal reformats were acquired. For radiation dose reduction, the following was used: automated exposure control, adjustment of mA and/or kV according to patient size. COMPARISON: [facility], CT, ABDOMEN/PELVIS WITH CONTRAST, 10/26/2015, 9:52. FINDINGS: Image quality: Excellent. ABDOMEN: Lung bases: Lung bases are clear. Heart size is normal. Solid organs: Liver is enlarged. Multiple low-attenuation hepatic focus are again noted, unchanged compared to prior exam. Gallbladder is unremarkable. Biliary system is non dilated. Pancreas enhances normally. Spleen is normal in size and enhancement. No adrenal nodules. Kidneys demonstrate normal size and enhancement, without hydronephrosis. Low-attenuation renal foci most suggestive of cysts are unchanged. Peritoneum and bowel: Bowel loops are nonobstructive. There is ill-defined soft tissue density and strandy fluid within the right lower quadrant. This is in the region of where the appendix was identified on the 2015 exam. The appendix is not clearly delineated on current exam.. No free air. Mild pelvic fluid is present. Moderate colonic stool. Nodes and vessels: No retroperitoneal or mesenteric adenopathy by size criteria. Aorta and inferior vena cava are normal in size. Miscellaneous: No ventral hernias. PELVIS: Genitourinary: Bladder wall thickness is normal. Miscellaneous: No inguinal hernias or adenopathy. Bones: No suspicious bony lesions. No vertebral body compression fractures. IMPRESSION: 1. Ill-defined soft tissue density in fluid within the right lower quadrant as well as mild dependent pelvic fluid. While the appendix is not clearly defined, given the area of above described inflammation corresponds to approximate location of appendix on 2015 exam, there is suspicion for appendicitis/ruptured appendix. 2. Multiple hepatic cysts. The above findings were discussed with Margaret Escalante on 01/16/2021 at 650 p.m.. Dictated by: Katia Carver M.D. on 01/16/2021 at 18:41 Labs Result Diagrams: 01/16/21 17:16 01/16/21 17:16 Labs: Laboratory Results - last 24 hr 01/16/21 01/16/21 01/16/21 15:34 17:16 17:16 WBC 10.4 RBC 4.47 L Hgb 14.7 Hct 43.8 MCV 97.9 MCH 32.9 MCHC 33.6 RDW 13.3 Plt Count 211 Neut % (Auto) 86.4 H Lymph % (Auto) 7.7 L Johnston % (Auto) 4.8 Eos % (Auto) 0.7 L Baso % (Auto) 0.4 Neut # (Auto) 9000 H Lymph # (Auto) 800 L Johnston # (Auto) 500 Eos # (Auto) 100 Baso # (Auto) 0 PT 11.8 INR 1.0 APTT 31 Sodium Potassium Chloride Carbon Dioxide BUN Creatinine Estimated GFR BUN/Creatinine Ratio Glucose Lactate Calcium Total Bilirubin AST ALT Alkaline Phosphatase Total Protein Albumin Globulin Albumin/Globulin Ratio Lipase Urine Color Yellow Urine Appearance Clear Urine pH 5.5 Ur Specific [place] 1.020 Urine Protein Negative Urine Glucose (UA) Negative Urine Ketones 1+ H Urine Occult Blood Trace-intact Urine Nitrate Negative Urine Bilirubin Negative Urine Urobilinogen 0.2 Ur Leukocyte Esterase Negative Urine RBC None seen Urine WBC None seen Urine Bacteria None seen Ur Culture Indicated? Cult not indicated SARS-CoV-2 (PCR) 01/16/21 01/16/21 01/16/21 17:16 17:16 19:27 WBC RBC Hgb Hct MCV MCH MCHC RDW Plt Count Neut % (Auto) Lymph % (Auto) Johnston % (Auto) Eos % (Auto) Baso % (Auto) Neut # (Auto) Lymph # (Auto) Johnston # (Auto) Eos # (Auto) Baso # (Auto) PT INR APTT Sodium 136 L Potassium 3.6 Chloride 104 Carbon Dioxide 26 BUN 21 H Creatinine 0.94 Estimated GFR > 60.0 BUN/Creatinine Ratio 22.3 H Glucose 114 H Lactate 1.4 Calcium 9.4 Total Bilirubin 0.6 AST 34 ALT 16 Alkaline Phosphatase 51 Total Protein 6.9 Albumin 4.2 Globulin 2.7 Albumin/Globulin Ratio 1.6 Lipase 965 H Urine Color Urine Appearance Urine pH Ur Specific [place] Urine Protein Urine Glucose (UA) Urine Ketones Urine Occult Blood Urine Nitrate Urine Bilirubin Urine Urobilinogen Ur Leukocyte Esterase Urine RBC Urine WBC Urine Bacteria Ur Culture Indicated? SARS-CoV-2 (PCR) Negative Assessment & Plan Assessment and plan (1) Acute appendicitis: Qualifiers: Acute appendicitis type: unspecified acute appendicitis type Qualified Code(s): K35.80 - Unspecified acute appendicitis Status: Acute Assessment & Plan narrative: This is an 85-year-old man with suspected perforated appendicitis. Risks and benefits of laparoscopic possible open appendectomy were discussed with the patient and his . Specifically risk of bleeding, infection, damage to nearby structures need for additional procedures, need for open surgery, bowel obstruction, hernia, ongoing infection were discussed. Patient desires to proceed with surgery. COVID-19 COVID-19 status: Negative Result date/Date tested (Pos, Neg/Pending): 01/16/21 Time Spent With Patient Time with patient: 25 - 35 minutes Quality VTE Deep Vein Thrombosis/Pulmonary Embolism Present on Admission: No
--- NOTE | 2021-01-16 21:25 | PC.NURSE ---
Admission: Pt to room 220 from E.R. awake, alert, conversant and accompanied by spouse, Yessi. Pt admits to Q abdominal pain 3-4/10. Is NPO pending surgery. IV antibiotic infusing to left ac iv site without difficulty. Pt was oriented to call light and plan of care for evening. Urinal provided and encouraged to call for staff assistance when needing/desiring out of bed. Taken by O.R. crew to surgery shortly after arrival to floor.
[2021-01-16] MEDS: LACTATED RINGERS 1,000 ML 42 ML IV ×2 (21:28→22:05)
[2021-01-16] MEDS: BUPIVACAINE 0.5% W/ EPI (PF) 30 ML VIAL INJ (22:01)
--- NOTE | 2021-01-16 22:06 | SUR.OPER ---
Supine on padded OR bed, head on pillow, right arm secured on padded arm boards at <90 degrees abduction, left arm is tucked, legs uncrossed, safety belt at thigh, tape over blanket over lower legs.
--- NOTE | 2021-01-16 22:14 | PC.NURSE ---
Patient was admitted by pily RN and taken to OR before this nurse was able to assess the patient.
--- NOTE | 2021-01-16 23:03 | P.OP_ITS ---
Operative Date/Time/Diagnoses Date of procedure: 01/16/21 Time of procedure: 23:03 Pre-op diagnosis: Acute perforated appendicitis Post-op diagnosis: same Procedure & Clinicians Procedure: Laparoscopic appendectomy Washout of abdomen Drain placement Same procedure as scheduled: Yes Indications: Acute perforated appendicitis with fecal purulent fluid throughout the pelvis and abdomen Surgeon: Raine Hernandez Click Yes if Unassisted: Yes Anesthesia Type: General Operative Notes Findings: Necrotic perforated distal 2 cm of a very long appendix, very elongated and redundant colon Specimen(s): other (appendix) Applied: drain(s) (TEJAL drain) Estimated Blood Loss (mL): 5 Procedure in detail: The patient was brought into the operating room and placed supine on the OR table. Sequential compression devices were placed on both legs and turned on. 4.5 gm of Zosyn was given prior to the start of surgery. General anesthesia was induced the patient was intubated. Gomez catheter was placed sterilely in the bladder. The abdomen was prepped and draped in sterile fashion. Surgical time-out was conducted. Local anesthetic was injected under the skin just superior to the umbilicus and a 5 mm vertical incision was made at this site. The umbilical stalk was grasped with a Fred and elevated. A Veress needle was passed through the fascia into proper position. The position was tested with a saline drop test which was appropriate for intra-abdominal Veress needle placement. The abdomen was then insufflated in the usual fashion. Once insufflated to 15 mm Hg the Veress needle was removed and a 5 mm optical trocar was placed under direct vision using a 5 mm 30 degree scope. Once the camera was inside the abdomen I took a look around. There was no injury from port placement. Two additional ports were placed in a similar fashion in the suprapubic position and left lower quadrant. The umbilical port was upsized to a 12 mm port. I took a look at the right lower quadrant and pelvis. Multiple loops of redundant transverse colon and small bowel were looping down into the pelvis. Murky brown purulent fluid was seen in the pelvis and right gutter. The loops of bowel were gently retracted out and in the the patient's left upper quadrant. Once the redundant bowel was out of the way, the cecum and appendix were seen. The appendix was very long. It's distal 2cm was thickened, firm, necrotic, and adherent to the surrounding structures. I then grasped the middle of the appendix and elevated it. 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 These were carefully divided using LigaSure. I dissected my way down the appendix to its junction with the cecum. At its base, the appendix was wide. Once all of the mesoappendix and surrounding adhesions were divided and hemost atic, a blue load Endo YOSVANY stapler was brought in and the appendix was divided at its junction with the cecum using the stapler. The appendix was then placed into an Endo-Catch bag, and removed through the umbilical port site. It was passed off the table for pathology. I then took another look at the right lower quadrant, pelvis, and both gutters. The remaining visible murky purulent fluid was irrigated and suctioned out. There was no evidence of ongoing bleeding. I placed a 19 round michael drain through the left lateral port site and positioned in the pelvis. It was secured with 3-0 Nylon at the skin. I then used the laparoscopic suture passer and closed the umbilical port site with 0 Vicryl suture through the fascia. Local anesthetic was used in this site and the other 2 port sites for a total of 30 mL of 0.5% Marcaine with epi for the entire case. At this point the insufflation was removed from the abdomen and the port sites were closed with, 3-0 Vicryl in the subcutaneous layers, and 4 Monocryl in the skin. Each port site was sealed with Dermabond or steri strips. The wounds were dressed with gauze and tape. A bandaid was placed over the steri strips at the umbilicus. Local anesthetic was given at each of the port sites and in the fascia. This concluded the procedure. At this point the needle sponge and instrument counts were correct. The patient was awakened from anesthesia and extubated. Gomez catheter was removed without incident. The patient was transferred to the postanesthesia care unit in stable condition. Complications: none Post-operative Condition: stable Disposition: PACU
[2021-01-16] MEDS: OXYCODONE IR 5 MG TABLET PO (23:13)
--- NOTE | 2021-01-16 23:21 | SUR.PHASEI ---
Attempted to call report to receiving nurse. Nurse unavailable at this time.
--- NOTE | 2021-01-16 23:22 | SUR.PHASEI ---
Patient tolerating ice chips and gingerale without difficulty. VSS. Talking to nurse intermittently. .
[2021-01-16] MEDS: SODIUM CHLORIDE 0.9% 1,000 ML 50 ML IV (23:55)
[2021-01-16 23:58] LABS: COVID19 - ADMIT (NP swab/PCR) Negative (Negative)
[2021-01-17] VITALS (8 sets, daily range): BP systolic 119–141; BP diastolic 62–81; PULSE 55–74; RESP 14–18; TEMP 36.4–37.2; O2SAT 94–100
--- NOTE | 2021-01-17 00:55 | PC.NURSE ---
2343 Pt. back to room 220 from PACU. Awake, alert and denies any pain. Incisions x3 umbilical incision covered with large BA drsg. CDL, lower abdominal incision LUIS ANGEL no drainage noted. Ministerio drain with drsg. CDI. Denies any nausea & pain. Ice pack applied & IS given, will cont. POc & monitor.
[2021-01-17] MEDS: PIPERACILLIN-TAZO 3.375 GM/50 ML FROZ.PIGGY IV ×4 (03:07→19:25)
[2021-01-17 05:28] LABS: Add Manual Diff / Slide Review NO; Basophils Absolute Auto 0 /uL (0-100); Basophils Percent Auto 0.1 % (0-2); Eosinophils Absolute Auto 0 /uL (0-450); Hemoglobin 13.2 g/dL (13.5-17.5); Lymphocytes Absolute Auto 400 /uL (1100-4500); Lymphocytes Percent Auto 3.3 % (25-40); Mean Corpuscular Hemoglobin 32.3 PG (26-34); Monocytes Absolute Auto 300 /uL (0-900); Monocytes Percent Auto 2.2 % (3-14); Neutrophils Absolute Auto 11500 /uL (1500-7000); Neutrophils Percent Auto 94.4 % (50-75); Platelet Count 189 X10^3/uL (150-400); Red Blood Cell Count 4.08 X10^6/uL (4.5-5.9); Red Cell Distribution Width 13.7 % (11.6-14.8); White Blood Cell Count 12.2 X10^3/uL (4.5-11.0)
[2021-01-17 05:35] LABS: BUN Creatinine Ratio 16.7 (6-22); Blood Urea Nitrogen 16 mg/dL (9-20); Calcium 8.5 mg/dL (8.4-10.2); Carbon Dioxide 29 mmol/L (22-32); Chloride 106 mmol/L (98-107); Estimated Glomerular Filt Rate > 60.0 mL/min (>60); Glucose 167 mg/dL (80-110); HEMOLYSIS < 15 (0-50); Magnesium 1.9 mg/dL (1.6-2.3); Phosphorous 3.9 mg/dL (2.3-3.7); Potassium 4.2 mmol/L (3.4-5.1); Sodium 137 mmol/L (137-145)
[2021-01-17] MEDS: DOCUSATE 100 MG CAPSULE PO ×2 (08:15→20:43)
[2021-01-17 08:19] LABS: Lipase 91 U/L (23-300)
--- NOTE | 2021-01-17 09:09 | CM.DANOTE ---
DCP: Case received, EMR reviewed and met with patient. , Yessi, was also at bedside. Introduced self and role. Was able to obtain information from patient regarding his baseline activity level prior to hospitalization. DCP assessment completed with information currently available. Patient is an 85 year old male who admitted yesterday to the care of the hospitalist/surgical team. PCP: Dr. Snyder (formerly Dr. Leon) Payer: confirmed: [employer] Medicare. Patient came to the hospital via private vehicle secondary to having right lower quadrant abdominal pain. Patient holds diagnosis of acute perforated appendicitis. He had laparoscopic surgery yesterday, and is currently on IV antibiotics. Met with patient in his room. He was sitting up in bed, alert and oriented, pleasant. , Yessi, at bedside, pleasant as well. He is independent at his baseline, active. He and his reside here in [place]. 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 P: DCP to continue to follow. Patient should be able to go home when he is medically stable. Cierra Jones RN/Patient Safety Tech
--- NOTE | 2021-01-17 10:47 | PC.NURSE ---
Pt reports mild pain but declines pain medication; bandages to abdomen c/d/i, lap site well-approximated, LUIS ANGEL; BTs active, tolerating diet; IV fluids d/c at 1050 to promote ambulation; IS 3000, LS clear
--- NOTE | 2021-01-17 11:05 | P.PN_ITS ---
Subjective Subjective Date Patient Seen: 01/17/21 Time Patient Seen: 11:05 Interval history: No acute events overnight. Pt has not passed gas or stool since OR. Minimal pain. Denies nausea. Exam Vital Signs (past 8 hours): - 01/17/21 08:00 01/17/21 08:39 Temperature 97.5 F L Pulse Rate 55 L 56 L Respiratory Rate 18 16 Blood Pressure 120/65 Pulse Oximetry 95 97 Oxygen Delivery Method Room Air Oxygen Flow Rate 0 Narrative Exam Narrative: Alert, comfortable Breathing comfortably on room air, non tachypneic Abdomen soft, distended, appropriately tender to palpation for postop day 1 TEJAL drain with serosanguineous output Objective Labs Result Diagrams: 01/17/21 05:15 01/17/21 05:15 Labs: Laboratory Results - last 24 hr 01/16/21 01/16/21 01/16/21 15:34 17:16 17:16 WBC 10.4 RBC 4.47 L Hgb 14.7 Hct 43.8 MCV 97.9 MCH 32.9 MCHC 33.6 RDW 13.3 Plt Count 211 Neut % (Auto) 86.4 H Lymph % (Auto) 7.7 L Mcculloch % (Auto) 4.8 Eos % (Auto) 0.7 L Baso % (Auto) 0.4 Neut # (Auto) 9000 H Lymph # (Auto) 800 L Mcculloch # (Auto) 500 Eos # (Auto) 100 Baso # (Auto) 0 PT 11.8 INR 1.0 APTT 31 Sodium Potassium Chloride Carbon Dioxide BUN Creatinine Estimated GFR BUN/Creatinine Ratio Glucose Lactate Calcium Phosphorus Magnesium Total Bilirubin AST ALT Alkaline Phosphatase Total Protein Albumin Globulin Albumin/Globulin Ratio Lipase Urine Color Yellow Urine Appearance Clear Urine pH 5.5 Ur Specific Shannock 1.020 Urine Protein Negative Urine Glucose (UA) Negative Urine Ketones 1+ H Urine Occult Blood Trace-intact Urine Nitrate Negative Urine Bilirubin Negative Urine Urobilinogen 0.2 Ur Leukocyte Esterase Negative Urine RBC None seen Urine WBC None seen Urine Bacteria None seen Ur Culture Indicated? Cult not indicated SARS-CoV-2 (PCR) 01/16/21 01/16/21 01/16/21 17:16 17:16 19:27 WBC RBC Hgb Hct MCV MCH MCHC RDW Plt Count Neut % (Auto) Lymph % (Auto) Mcculloch % (Auto) Eos % (Auto) Baso % (Auto) Neut # (Auto) Lymph # (Auto) Mcculloch # (Auto) Eos # (Auto) Baso # (Auto) PT INR APTT Sodium 136 L Potassium 3.6 Chloride 104 Carbon Dioxide 26 BUN 21 H Creatinine 0.94 Estimated GFR > 60.0 BUN/Creatinine Ratio 22.3 H Glucose 114 H Lactate 1.4 Calcium 9.4 Phosphorus Magnesium Total Bilirubin 0.6 AST 34 ALT 16 Alkaline Phosphatase 51 Total Protein 6.9 Albumin 4.2 Globulin 2.7 Albumin/Globulin Ratio 1.6 Lipase 965 H Urine Color Urine Appearance Urine pH Ur Specific Shannock Urine Protein Urine Glucose (UA) Urine Ketones Urine Occult Blood Urine Nitrate Urine Bilirubin Urine Urobilinogen Ur Leukocyte Esterase Urine RBC Urine WBC Urine Bacteria Ur Culture Indicated? SARS-CoV-2 (PCR) Negative 01/16/21 01/17/21 01/17/21 20:19 05:15 05:15 WBC 12.2 H RBC 4.08 L Hgb 13.2 L Hct 40.0 L MCV 98.0 MCH 32.3 MCHC 33.0 RDW 13.7 Plt Count 189 Neut % (Auto) 94.4 H Lymph % (Auto) 3.3 L Mcculloch % (Auto) 2.2 L Eos % (Auto) 0.0 L Baso % (Auto) 0.1 Neut # (Auto) 08910 H Lymph # (Auto) 400 L Mcculloch # (Auto) 300 Eos # (Auto) 0 Baso # (Auto) 0 PT INR APTT Sodium 137 Potassium 4.2 Chloride 106 Carbon Dioxide 29 BUN 16 Creatinine 0.96 Estimated GFR > 60.0 BUN/Creatinine Ratio 16.7 Glucose 167 H Lactate Calcium 8.5 Phosphorus 3.9 H Magnesium 1.9 Total Bilirubin AST ALT Alkaline Phosphatase Total Protein Albumin Globulin Albumin/Globulin Ratio Lipase Urine Color Urine Appearance Urine pH Ur Specific Shannock Urine Protein Urine Glucose (UA) Urine Ketones Urine Occult Blood Urine Nitrate Urine Bilirubin Urine Urobilinogen Ur Leukocyte Esterase Urine RBC Urine WBC Urine Bacteria Ur Culture Indicated? SARS-CoV-2 (PCR) Negative 01/17/21 05:15 WBC RBC Hgb Hct MCV MCH MCHC RDW Plt Count Neut % (Auto) Lymph % (Auto) Mcculloch % (Auto) Eos % (Auto) Baso % (Auto) Neut # (Auto) Lymph # (Auto) Mcculloch # (Auto) Eos # (Auto) Baso # (Auto) PT INR APTT Sodium Potassium Chloride Carbon Dioxide BUN Creatinine Estimated GFR BUN/Creatinine Ratio Glucose Lactate Calcium Phosphorus Magnesium Total Bilirubin AST ALT Alkaline Phosphatase Total Protein Albumin Globulin Albumin/Globulin Ratio Lipase 91 D Urine Color Urine Appearance Urine pH Ur Specific Shannock Urine Protein Urine Glucose (UA) Urine Ketones Urine Occult Blood Urine Nitrate Urine Bilirubin Urine Urobilinogen Ur Leukocyte Esterase Urine RBC Urine WBC Urine Bacteria Ur Culture Indicated? SARS-CoV-2 (PCR) [facility] Medical History Acne (~1951) Chicken pox (~1947) Cholinesterase deficiency Chronic back pain Measles (~1939) Mumps (~1942) Seasonal allergies (~1959) Shoulder pain Tinnitus Surgical History Anesthesia Status post hernia repair (~2008) Status post knee surgery (~1987) Family History Father Hypertension High cholesterol Stroke Skin cancer Mother Hypertension High cholesterol Dementia Colon cancer Social History household members: spouse Smoking Status: Never smoker alcohol intake: current Assessment & Plan Assessment and plan (1) Acute appendicitis: Qualifiers: Acute appendicitis type: unspecified acute appendicitis type Qualified Code(s): K35.80 - Unspecified acute appendicitis Status: Acute (2) Postoperative ileus: Status: Acute Assessment & Plan narrative: 85 yo man with postop day 1 from acute appendicitis. He was taken to the operating room for emergency appendectomy about 12 hours ago. He has not passed any gas or stool since surgery, and is pretty distended. Given the extensive infection he had in his abdomen we will continue IV antibiotics for today, and have him up and ambulating as much as possible. We will advance his diet as tolerated, and restart IV fluids if necessary. He does appear to have an ileus, but this may resolve without NG tube or prolonged hospitalization. Have warned the patient and his that sometimes we see people with a prolonged ileus or even mechanical obstruction after a severe acute perforated appendicitis. Plan: Ambulate as much as possible ADAT, return to clears if not tolerating PO Continue IV abx Daily CBC Stool softener pain meds PRN Anti emetic PRN DVT ppx heparin BID Quality VTE Deep Vein Thrombosis/Pulmonary Embolism Present on Admission: No
[2021-01-17] MEDS: BISACODYL 10 MG SUPP PR (18:10)
[2021-01-17 19:14] LABS: Blood Urea Nitrogen 24 mg/dL (9-20); Calcium 8.7 mg/dL (8.4-10.2); Carbon Dioxide 28 mmol/L (22-32); Chloride 103 mmol/L (98-107); Estimated Glomerular Filt Rate 57.8 mL/min (>60); Glucose 136 mg/dL (80-110); HEMOLYSIS < 15 (0-50); Potassium 3.5 mmol/L (3.4-5.1); Sodium 134 mmol/L (137-145)
[2021-01-17] MEDS: SENNOSIDES 8.6 MG TABLET 17.2 MG PO (20:43)
[2021-01-17] MEDS: HEPARIN 5,000 UNIT/ML VIAL 5000 UNIT SUBCUT (20:43)
[2021-01-17] MEDS: SODIUM CHLORIDE 0.9% FLUSH 10 ML IV (20:43)
[2021-01-17] MEDS: POTASSIUM CHLORIDE 20 MEQ TAB 40 MEQ PO (21:02)
[2021-01-18 00:10] VITALS: BP 135/73; PULSE 59; RESP 18; TEMP 37.3; O2SAT 97
[2021-01-18] MEDS: ACETAMINOPHEN 325 MG TABLET 650 MG PO (01:44)
--- NOTE | 2021-01-18 02:10 | PC.NURSE ---
Patient recieved lying in bed. A&Ox3. Sits up to edge of bed for assessment. Ambulates around room with SBA. LS CTA. Abdomen with x3 incisions CDI. TEJAL site and drain with minimal serosanguineous liquid. Dressing changed to site per request. BS hypoactive, he reports + flatulence and small BM earlier this evening. He states pain 3/10 to abdomen and administered tylenol with good effect.
[2021-01-18] MEDS: PIPERACILLIN-TAZO 3.375 GM/50 ML FROZ.PIGGY IV (04:01)
[2021-01-18 04:04] VITALS: BP 132/81; PULSE 52; RESP 18; TEMP 36.5; O2SAT 97
[2021-01-18 05:25] LABS: Add Manual Diff / Slide Review NO; Basophils Absolute Auto 0 /uL (0-100); Basophils Percent Auto 0.4 % (0-2); Eosinophils Absolute Auto 0 /uL (0-450); Eosinophils Percent Auto 0.4 % (2-4); Hematocrit 38.8 % (41-53); Hemoglobin 12.9 g/dL (13.5-17.5); Lymphocytes Absolute Auto 1000 /uL (1100-4500); Lymphocytes Percent Auto 11.6 % (25-40); Mean Corpuscular HGB Conc 33.2 % (30-36); Mean Corpuscular Hemoglobin 32.6 PG (26-34); Mean Corpuscular Volume 98.1 fL (80-100); Monocytes Absolute Auto 600 /uL (0-900); Neutrophils Absolute Auto 6800 /uL (1500-7000); Neutrophils Percent Auto 80.6 % (50-75); Platelet Count 182 X10^3/uL (150-400); Red Blood Cell Count 3.96 X10^6/uL (4.5-5.9); Red Cell Distribution Width 13.6 % (11.6-14.8); White Blood Cell Count 8.5 X10^3/uL (4.5-11.0)
[2021-01-18 05:31] LABS: Blood Urea Nitrogen 21 mg/dL (9-20); Calcium 8.5 mg/dL (8.4-10.2); Carbon Dioxide 29 mmol/L (22-32); Chloride 108 mmol/L (98-107); Estimated Glomerular Filt Rate > 60.0 mL/min (>60); Glucose 113 mg/dL (80-110); HEMOLYSIS < 15 (0-50); Magnesium 2.2 mg/dL (1.6-2.3); Phosphorous 3.5 mg/dL (2.3-3.7); Potassium 3.9 mmol/L (3.4-5.1); Sodium 137 mmol/L (137-145)
[2021-01-18 07:30] VITALS: BP 148/94; PULSE 61; RESP 19; TEMP 37; O2SAT 98
[2021-01-18] MEDS: SODIUM CHLORIDE 0.9% FLUSH 10 ML IV (08:46)
[2021-01-18] MEDS: HEPARIN 5,000 UNIT/ML VIAL 5000 UNIT SUBCUT (08:46)
[2021-01-18] MEDS: DOCUSATE 100 MG CAPSULE PO (08:46)
--- NOTE | 2021-01-18 09:54 | P.DS_ITS ---
History of Present Illness History of Present Illness Chief complaint: sudden, sharp, lwr right abdominal pain Narrative: This is an 85 yo man who comes in with acute onset of RLQ pain at about 3:00PM. He denies any prodromic symptoms. He reports that he was playing video games and suddenly felt like he was shot in the abdomen. He denies fevers/chills/nausea/dysuria/diarrhea/constipation. He says his last c olonoscopy was about five years ago and was normal. His mother had colon cancer, and so he has been on a high risk screening protocol. CT scan in the ER shows a fluid collection where the appendix was seen on a prior CT, suspicious for ruptured appendicitis. ROS: GENERAL: Denies chills, fatigue, malaise, fever, sweats. HEENT: Denies sinus pain, ear pain, sore throat, difficulty swallowing, d izziness. RESPIRATORY: Denies dyspnea, cough, wheezing, hemoptysis, sputum. CARDIOVASCULAR: Denies chest pain, palpitations, orthopnea, edema, GASTROINTESTINAL: See HPI : Denies dysuria, frequency, incontinence, hematuria, urinary retention. MUSCULOSKELETAL: denies weakness, joint pain, or bony pain SKIN: Denies rash, skin lesions, or other NEUROLOGIC: Denies weakness, headache, numbness, change in speech, confusion, seizures, incoordination. PSYCHIATRIC: No concerning psychosocial issues. PE: GENERAL: Well groomed and cooperative. Appears stated age. Answers questions promptly and appropriately. Vital signs noted. HENT: Normocephalic, atraumatic. Hearing intact. EYES: Conjunctiva pink, sclera white, no periorbital swelling. CARDIOVASCULAR: Regular rate. No pedal edema. RESPIRATORY: Non-tachypneic, breathing comfortably on room air. GASTROINTESTINAL: Abdomen soft and non-distended; mild TTP in RLQ; negative Rovsing sign GENITALURINARY: No flank tenderness. MUSCULOSKELETAL: Equal tone and mass bilaterally. SKIN: Warm, dry, soft, appropriate color for ethnicity. No other lesions, rashes, or wounds. NEURO: Alert and Oriented X 3. No gross sensory deficits, or cognitive issues. PSYCH: Appropriate affect and mood. Discharge Providers Provider Date of admission: 01/17/21 09:00 Discharge Date: 01/18/21 Primary care physician: Wilfredo Leon MD Consults: 01/16/21 23:44 Consult to Discharge Planning Routine Comment: Discharge provider: Raine Hernandez MD Summary Hospital Course Discharge Diagnosis: Acute perforated appendicitis Hospital Course: Taken urgently to OR for appendectomy, abdominal washout, and drain placement; Discharged on POD#2 with good PO intake, pain control, labs appropriate, and passing gas/stool. Status at Discharge Cognitive/behavioral status at discharge: oriented Functional status at discharge: independent ambulation Overall status at discharge: patient is progressing back to baseline Time Spent with Patient Time spent: Greater than 30 minutes Exam Vital Signs (past 8 hours): - 01/18/21 04:04 01/18/21 07:30 Temperature 97.7 F 98.6 F Pulse Rate 52 L 61 Respiratory Rate 18 19 Blood Pressure 132/81 148/94 H Pulse Oximetry 97 98 Oxygen Delivery Method Room Air Oxygen Flow Rate 0 Narrative Exam Narrative: Alert, comfortable Breathing comfortably on room air, non tachypneic Abdomen soft, mildly distended, appropriately tender to palpation for postop day 1 TEJAL drain with serosanguineous output; removed during exam Objective Labs Result Diagrams: 01/18/21 05:00 01/18/21 05:00 Labs: Laboratory Results - last 24 hr 01/17/21 01/18/21 01/18/21 18:50 05:00 05:00 WBC 8.5 RBC 3.96 L Hgb 12.9 L Hct 38.8 L MCV 98.1 MCH 32.6 MCHC 33.2 RDW 13.6 Plt Count 182 Neut % (Auto) 80.6 H Lymph % (Auto) 11.6 L Nolan % (Auto) 7.0 Eos % (Auto) 0.4 L Baso % (Auto) 0.4 Neut # (Auto) 6800 Lymph # (Auto) 1000 L Nolan # (Auto) 600 Eos # (Auto) 0 Baso # (Auto) 0 Sodium 134 L 137 Potassium 3.5 3.9 Chloride 103 108 H Carbon Dioxide 28 29 BUN 24 H 21 H Creatinine 1.20 1.05 Estimated GFR 57.8 L > 60.0 BUN/Creatinine Ratio 20.0 20.0 Glucose 136 H 113 H Calcium 8.7 8.5 Phosphorus 3.5 Magnesium 2.0 2.2 [facility] Medical History Acne (~1952) Chicken pox (~1947) Cholinesterase deficiency Chronic back pain Measles (~1939) Mumps (~1942) Seasonal allergies (~1959) Shoulder pain Tinnitus Surgical History Anesthesia Status post hernia repair (~2008) Status post knee surgery (~1987) Family History Father Hypertension High cholesterol Stroke Skin cancer Mother Hypertension High cholesterol Dementia Colon cancer Social History household members: spouse Smoking Status: Never smoker alcohol intake: current Discharge Assessment & Plan Assessment and Plan Assessment: acute appendicitis, perforated Plan of Treatment: Discharge home with DC instructions, plan to follow up in 2 weeks; return prec autions given Discharge Plan Discharge Plan Patient Disposition: Home Provider Discharge Comment: You had your appendix removed laparoscopically for perforated appendicitis. You have Steri strips and skin glue called Dermabond on your incisions. The site where the drain was removed should be covered with a dry dressing until it stops draining fluid. In 48 hours you may shower and get the incisions wet. Do not soak the incisions in a pool or tub for two weeks Your sore throat and cough is likely due to having an intubation tube in your trachea during surgery. That can cause phlegm and irritation in the throat for several weeks after surgery. If your cough is persistent or worsening you anuju talia make an urgent appointment with Dr. Jacinto or another provider from his office to discuss your cough. You may take Tylenol/ Acetaminophen for pain after surgery. Make sure you do not take more than 3000 mg of Acetaminophen per day from any source. There may be Acetaminophen in your prescription pain medication, cold medications or headache remedies. You may also NSAID such as ibuprofen or Aleve will help with inflammation. Do not take more than recommended on packaging instructions. You may take it in addition to Tylenol as the two medications have different modes of action. Make sure to take a stool softener to prevent constipation, such as Docusate. This may be purchased over the counter. 100mg twice daily to prevent constipation. You may stop it as your bowels return to normal. If you are not able have a bowel movement in 24 hours, or you feel constipated please take an additional laxative such as MiraLax or Senna. Avoid any straining on the toilet. Avoid heavy lifting, pulling, or pushing more than 10 lbs or doing other activities that strain the abdomen or increase the abdominal pressure such as sit-ups, core work outs for four weeks after surgery. If you have fevers, jaundice, intractable nausea/vomiting, or intractable pain please call the doctor's office or if symptoms are severe come into the ER. If you call after hours please choose the option to contact the surgeon environmental health inspector rather than leaving a message. Discharge orders & Medications Prescriptions: Continued Multi-Day with Iron 18-400 mg-mcg Tablet 1 tab PO DAILY RF: 0 Follow up/Referrals: Raine Hernandez MD [Physician] - (call to make a follow up appointment to be seen in the next two weeks at [facility]) Diet/Activity/Treatments Diet: Diet as Tolerated Skin/Wound/Dressing Care Report to your healthcare provider any signs of infection, such as:: chills, fever, night sweats, increased pain, unusual drainage and unusual redness Visit Report/Discharge Packet Instructions: DI for an Appendectomy, DI for Laparoscopy, [facility]: Wound Care Stand Alone Forms: Surgery Discharge Discharge Data Primary Care Provider: Wilfredo Leon VTE Deep Vein Thrombosis/Pulmonary Embolism Present on Admission: No
--- NOTE | 2021-01-18 09:58 | CM.DPC ---
DCP Discharge Home Per Surgeon, pt is medically stable to d/c home today with no identified barriers to discharge and recommend outpt follow up with surgeon in a couple weeks. SW met bedside with pt and spouse and explained role and provided copy of Medicare Message and discussed Medicare rights and they acknowledged understanding and added copy of IMM to their d/c packet. Both pt and spouse confirm they are agreeable to d/c home today and no concerns and spouse's car is in the parking lot and they are aware to call [facility] office to schedule follow up appointment. Plan: Patient to d/c home via spouse POV today and no SW needs at this time. STEVEN Bowden
--- NOTE | 2021-01-18 10:16 | PC.NURSE ---
Day shift: Paperwork singed and all questions answered. TEJAL drain removed by MD and steri strips placed and gauze dressing applied by MD. Pt supplied w/ 4x4 gauze and tape for dressing changes. No new MD scripts. Pt's spouse in room for teaching by and this RN. Taken to car in . Spouse will drive Pt home. Pt encouraged not do drink any alcohol for 4 weeks to give time for his body to heal.
== END 2021-01-18 10:19 | disposition home or self-care (01) | DRG 343 ==
LOC: ED 16:49 → AC 19:41
PROVIDERS: Emergency Medicine; Admitting Provider Surgery; Emergency Provider Nurse Practitioner Family; PCP Family Medicine; Referring Provider Nurse Practitioner Family; Visit Provider Surgery
PROC: 0DTJ4ZZ Resection of Appendix, Percutaneous Endoscopic Approach (ICD-10-PCS; CPT 44970; principal; 2021-01-16 21:00)
DX: K35.20 Acute appendicitis with generalized peritonitis, without abscess (principal); Z20.822 Contact with and (suspected) exposure to COVID-19
CPT/HCPCS: 36415; 44970; 74177; 80048; 80053; 81001; 83605; 83690; 83735; 84100; 85025; 85610; 85730; 87635; 93005; 94762; 96361; 96365; 96375; 99220; 99284; 99285; C9803; G0378; J0330; J1100; J1644; J1885; J2270; J2405; J2543; J2704; J3010; Q9967

== ENCOUNTER → 2022-01-10 09:21 | Outpatient (CLI) | payer MEDICARE, SELFPAY ==
[2021-01-18 13:29] VITALS: BMI 21.7
--- NOTE | 2022-01-10 09:23 | DI.RAD.S_ITS ---
PROCEDURE: XR KNEE LT 3V INDICATIONS: Left medial knee pain TECHNIQUE: 3 views of the knee were acquired. COMPARISON: None. FINDINGS: Bones: No fractures or dislocations. Mild tricompartment osteophytosis. Mild to moderate narrowing of the medial compartment. Small superior patellar enthesophyte. Soft tissues: No joint effusion. Vascular calcifications are noted. IMPRESSION: No acute osseous abnormality. Dictated by: Naeem Santoyo M.D. on 01/10/2022 at 9:53 Approved by: Naeem Santoyo M.D. on 01/10/2022 at 9:56
== END ==
PROVIDERS: PCP Student in an Organized Health Care Education/Training Program; Referring Provider Student in an Organized Health Care Education/Training Program; Visit Provider Student in an Organized Health Care Education/Training Program
DX: M25.562 Pain in left knee (principal)
CPT/HCPCS: 73562

== ENCOUNTER → 2022-02-10 13:55 | Outpatient (CLI) | payer MEDICARE, SELFPAY ==
[2021-01-18 13:29] VITALS: BMI 21.7
[2022-02-10 15:30] LABS: Hematocrit 44.9 % (41-53); Mean Corpuscular HGB Conc 33.3 % (30-36); Mean Corpuscular Hemoglobin 32.3 PG (26-34); Mean Corpuscular Volume 96.9 fL (80-100); Platelet Count 232 X10^3/uL (150-400); Red Blood Cell Count 4.64 X10^6/uL (4.5-5.9); Red Cell Distribution Width 13.6 % (11.6-14.8); White Blood Cell Count 4.8 X10^3/uL (4.5-11.0)
[2022-02-10 15:50] LABS: Alanine Aminotransferase 14 IU/L (<50); Albumin 4.5 g/dL (3.5-5.0); Albumin Globulin Ratio 1.6 (1.0-2.8); Alkaline Phosphatase 47 U/L (38-126); Aspartate Aminotransferase 34 IU/L (17-59); BUN Creatinine Ratio 24.1 (6-22); Bilirubin Total 0.8 mg/dL (0.2-1.3); Blood Urea Nitrogen 21 mg/dL (9-20); Calcium 9.3 mg/dL (8.4-10.2); Carbon Dioxide 28 mmol/L (22-32); Chloride 104 mmol/L (98-107); Estimated Glomerular Filt Rate > 60.0 mL/min (>60); Globulin 2.9 g/dL (1.7-4.1); Glucose 99 mg/dL (80-110); HEMOLYSIS < 15 (0-50); Potassium 4.3 mmol/L (3.4-5.1); Sodium 140 mmol/L (137-145); Total Protein 7.4 g/dL (6.3-8.2)
== END ==
PROVIDERS: PCP Student in an Organized Health Care Education/Training Program; Referring Provider Student in an Organized Health Care Education/Training Program; Visit Provider Student in an Organized Health Care Education/Training Program
DX: E78.2 Mixed hyperlipidemia (principal); I49.9 Cardiac arrhythmia, unspecified; Z78.9 Other specified health status
CPT/HCPCS: 36415; 80053; 85027

== ENCOUNTER → 2022-05-11 09:14 | Outpatient (CLI) | payer MEDICARE, SELFPAY ==
[2021-01-18 13:29] VITALS: BMI 21.7
[2022-05-11 10:25] LABS: COVID19 -Nasal RAPID Negative (Negative)
== END ==
PROVIDERS: PCP Student in an Organized Health Care Education/Training Program; Visit Provider Surgery
DX: Z20.822 Contact with and (suspected) exposure to COVID-19 (principal); Z01.812 Encounter for preprocedural laboratory examination
CPT/HCPCS: 87635; C9803

== ENCOUNTER 2022-05-12 07:42 | Day surgery (SDC) | payer MEDICARE, SELFPAY ==
[2021-01-18 13:29] VITALS: BMI 21.7
--- NOTE | 2022-05-12 | PATH_ITS ---
[facility] Accession Number: [id number] No. of containers..02 Tissue . 01 Material submitted: . PART A: colon - CECUM POLYP PART B: colon - ASCENDING COLON POLYP . 01 Diagnosis: A. Cecal Polyp, Biopsy: Colonic mucosa with no diagnostic abnormality, consistent with polypoid redundancy. Negative for serrated lesion, dysplasia, or malignancy. . B. Ascending Colon Polyp, Biopsy: Tubular adenoma. MRV 05/13/2022 1604 Local . 01 Electronically signed: . Kirk Irby MD, PhD, Pathologist NPI- [id number] . 01 Gross description: . CECUM POLYP: Received in formalin are multiple fragment(s) of zhang, soft tissue measuring 0.1 x 0.1 x 0.1 cm to 0.2 x 0.2 x 0.2 cm submitted entirely in 1 cassette(s) /IRAIDA ASCENDING COLON POLYP: Received in formalin is one fragment of zhang, soft tissue measuring 1.6 X 0.4 X 0.2 CM.submitted entirely in 1 cassette.. /IRAIDA 05/13/2022 0027 Local . 01 Pathologist provided ICD-10: D12.2 . 01 CPT . 568515, [id number] Specimen Comment: A courtesy copy of this report has been sent to [phone] Performed at: 01 [facility] [address] [place] [address], [place], [place] [id number] MD Gregorio Bazan MD Phone: [phone]
[2022-05-12 08:08] VITALS: BMI 21.7
[2022-05-12 08:12] VITALS: BP 154/88; PULSE 78; RESP 16; TEMP 36.7; O2SAT 99
[2022-05-12] MEDS: LACTATED RINGERS 1,000 ML 42 ML IV (08:15)
--- NOTE | 2022-05-12 08:27 | PM.HP.1 ---
History of Present Illness History of Present Illness Date Patient Seen: 05/12/22 Time Patient Seen: 08:27 Chief complaint: SDC Narrative: Bacilio is an 86-year-old man who has a family history of colon cancer and a personal history of colon polyps. His last colonoscopy was about [address] Contreras. Patient History Medical History (Updated 05/12/22 @ 08:28 by Zack Nguyen MD) Acne (~1951) Acute appendicitis Chicken pox (~1947) Chronic back pain Measles (~1939) Mumps (~1942) Postoperative ileus Rubella (~1952) Seasonal allergies (~1959) Shoulder pain Tinnitus Surgical History (Updated 03/20/21 @ 22:30 by Elissa Appiah) Anesthesia History of appendectomy History of cataract removal with insertion of prosthetic lens (~2014) History of partial knee replacement (~2011) Status post hernia repair (~2008) Status post knee surgery (~1987) Family & Social History Family History Father Hypertension High cholesterol Stroke Skin cancer Mother Hypertension High cholesterol Dementia Colon cancer Social History: household members spouse Tobacco & Substance use: Smoking Status Never smoker alcohol intake current alcohol intake frequency 0-2 drinks per day Substance Use Type does not use Meds Home Medications and Allergies Home Medications Medication Instructions Recorded Confirmed Type multivitamin-ferrous 1 tab PO DAILY 08/21/18 05/12/22 History fumarate-folic acid 18 mg-400 mcg tablet (Multi-Day with Iron) sodium sul 1.479 gram-potas ch See Rx Instructions PO PER PKG DIR 04/11/22 Rx 0.188 gram-magnes sul 0.225 gram #24 tabs tablet (Sutab) Allergies Allergy/AdvReac Type Severity Reaction Status Date / Time Sulfa (Sulfonamide Allergy Mild RASH Verified 05/12/22 08:01 Antibiotics) [SULFA (SULFONAMIDE ANTIBIOTICS)] succinylcholine AdvReac Severe cholinesterase Verified 05/12/22 08:01 deficiency Exam Vital Signs (past 8 hours): - 05/12/22 08:12 Temperature 98.0 F Pulse Rate 78 Respiratory Rate 16 Blood Pressure 154/88 H Pulse Oximetry 99 Oxygen Delivery Method Room Air Oxygen Delivery Method Room Air Const General: comfortable Resp Effort & Inspection: normal respiratory effort Assessment & Plan Assessment and plan (1) Personal history of colonic polyps: Status: Acute (2) Family history of colon cancer in mother: Status: Acute Plan 86-year-old man who has a family history colon cancer and a personal history of colon polyps. We discussed the risks and benefits of colonoscopy and he would like to proceed. Time Spent With Patient Critical Care time: I spent a total of [] minutes of critical care time on this patient's care today; this time is exclusive of procedural time.
[2022-05-12] MEDS: MIDAZOLAM 5 MG/5 ML VIAL 4 MG IV (08:37)
[2022-05-12] MEDS: fentaNYL 250 MCG/5 ML INJ 125 MCG IV (08:44)
--- NOTE | 2022-05-12 09:07 | PM.OP.COLON ---
Operative Date/Time/Diagnoses Date of procedure: 05/12/22 Time of procedure: 09:07 Pre-op diagnosis: Personal history of polyps and family history of colon cancer Post-op diagnosis: same Procedure & Clinicians Study performed: Colonoscopy Same procedure as scheduled: Yes Surgeon: Zack Nguyen Procedure Notes Procedure in detail: Surgeon: Zack Nguyen MD Procedure: The patient was brought to the endoscopy suite, placed in left lateral decubitus position. The patient was connected to monitoring devices. A time-out was performed. Sedation was administered. Once the patient was adequately sedated, a digital rectal exam was performed and was normal. The scope was then inserted and advanced to the cecum where the appendiceal orifice was identified and photographed. The scope was then slowly withdrawn over greater than 6 minutes. The mucosa was thoroughly inspected. There was a small 5 mm polyp in the cecum removed with cold snare. There was a 8 mm sessile polyp in the ascending colon removed with hot snare. The scope was retroflexed in the rectum. No other abnormalities were noted. The scope was straightened and removed. The patient was awakened and brought to recovery. Versed: 4 mg Fentanyl: 125 mcg EBL: 5 mL Findings: Small 5 mm polyp in the cecum and 8 mm sessile polyp in the ascending colon Scope withdrawal time: 13 Sedation minutes: 30 Post-procedure Recommendations: Will call with biopsy results Disposition: PACU
[2022-05-12 09:10] VITALS: BP 119/66; PULSE 58; RESP 12; TEMP 37.1; O2SAT 97
[2022-05-12 09:16] VITALS: BP 113/72; PULSE 59; RESP 16; O2SAT 97
[2022-05-12 09:40] VITALS: BP 118/64; PULSE 58; RESP 16; TEMP 36.2; O2SAT 97
== END 2022-05-12 09:38 | disposition home or self-care (01) ==
PROVIDERS: PCP Student in an Organized Health Care Education/Training Program; Referring Provider Surgery; Visit Provider Surgery
PROC: 0DJD8ZZ Inspection of Lower Intestinal Tract, Via Natural or Artificial Opening Endoscopic (ICD-10-PCS; CPT 45378; principal; 2022-05-12 08:30)
DX: Z12.11 Encounter for screening for malignant neoplasm of colon (principal); Z86.010 Personal history of colon polyps; Z80.0 Family history of malignant neoplasm of digestive organs; D12.2 Benign neoplasm of ascending colon
CPT/HCPCS: 45385; 99152; 99153; J2250; J3010

== ENCOUNTER → 2023-01-04 13:41 | Outpatient (CLI) | payer MEDICARE, SELFPAY ==
[2021-01-18 13:29] VITALS: BMI 21.7
[2023-01-04 14:37] LABS: Add Manual Diff / Slide Review NO; Basophils Absolute Auto 0 /uL (0-100); Basophils Percent Auto 0.8 % (0-2); Eosinophils Absolute Auto 100 /uL (0-450); Eosinophils Percent Auto 1.6 % (2-4); Hematocrit 41.6 % (41-53); Hemoglobin 14.1 g/dL (13.5-17.5); Lymphocytes Absolute Auto 800 /uL (1100-4500); Lymphocytes Percent Auto 19.6 % (25-40); Mean Corpuscular HGB Conc 33.9 % (30-36); Mean Corpuscular Hemoglobin 32.8 PG (26-34); Mean Corpuscular Volume 96.7 fL (80-100); Monocytes Absolute Auto 400 /uL (0-900); Neutrophils Absolute Auto 2900 /uL (1500-7000); Platelet Count 202 X10^3/uL (150-400); Red Blood Cell Count 4.31 X10^6/uL (4.5-5.9); Red Cell Distribution Width 13.3 % (11.6-14.8); White Blood Cell Count 4.2 X10^3/uL (4.5-11.0)
[2023-01-04 14:53] LABS: BUN Creatinine Ratio 27.5 (6-22); Blood Urea Nitrogen 22 mg/dL (9-20); Calcium 8.9 mg/dL (8.4-10.2); Carbon Dioxide 29 mmol/L (22-32); Chloride 105 mmol/L (98-107); Estimated Glomerular Filt Rate > 60 mL/min (>60); Glucose 92 mg/dL (80-110); HEMOLYSIS < 15 (0-50); Sodium 139 mmol/L (137-145)
== END ==
PROVIDERS: PCP Student in an Organized Health Care Education/Training Program; Referring Provider Orthopaedic Surgery; Visit Provider Orthopaedic Surgery
DX: Z01.818 Encounter for other preprocedural examination (principal); M25.562 Pain in left knee; Z01.812 Encounter for preprocedural laboratory examination
CPT/HCPCS: 36415; 80048; 85025; 93005

== ENCOUNTER 2023-01-25 10:19 | Day surgery (SDC) | payer MEDICARE, SELFPAY ==
[2021-01-18 13:29] VITALS: BMI 21.7
[2023-01-18 12:39] VITALS: BMI 21.7
[2023-01-25] VITALS (11 sets, daily range): BP systolic 80–155; BP diastolic 55–81; PULSE 53–93; RESP 14–18; TEMP 35.7–36.8; O2SAT 94–99; BMI 21.7
[2023-01-25] MEDS: LACTATED RINGERS 1,000 ML 42 ML IV ×2 (11:06→13:38)
[2023-01-25 11:11] LABS: COVID19 -Nasal RAPID Negative (Negative)
--- NOTE | 2023-01-25 11:55 | DI.RAD.S_ITS ---
PROCEDURE: XR KNEE LT 1TO2V INDICATIONS: post op total knee TECHNIQUE: 2 view(s) of the knee acquired. COMPARISON: [facility], CR, XR KNEE LT 3V, 01/10/2022, 9:17. FINDINGS: Bones: Patient is status post knee joint arthroplasty. Hardware components are in expected positions. Visualized bony structures are intact. Soft tissues: Overlying postoperative changes are noted. 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 Dictated by: Mumtaz Moody M.D. on 01/25/2023 at 14:50 Approved by: Mumtaz Moody M.D. on 01/25/2023 at 14:51
--- NOTE | 2023-01-25 11:57 | PM.PREOP ---
Pre-operative Note COVID-19 COVID-19 status: Negative Result date/Date tested (Pos, Neg/Pending): 01/25/23 Interval Note History & Physical reviewed/Exam performed by Physician: Yes Changes to H&P: No
[2023-01-25] MEDS: CEFAZOLIN 2 GM/100 ML PREMIX 100 ML IV ×2 (12:59→21:09)
[2023-01-25] MEDS: TRANEXAMIC ACID 1,000 MG VIAL 1000 MG INJ ×2 (13:05→14:01)
--- NOTE | 2023-01-25 13:20 | SUR.OPER ---
Supine on padded OR bed. Pillow under head, arms secured on padded armboards <90 degree abduction. Safety belt across torso. Non-operative leg secured with tape over blanket over lower leg. Operative leg secured in Erich positioner. Foam padded brace at thigh of operative leg.
[2023-01-25] MEDS: BUPIVACAINE 0.25% (PF) 60 ML, EPINEPHrine 0.3 MG INJ (13:36)
[2023-01-25] MEDS: MORPHINE 4 MG/ML INJ INJ (13:41)
[2023-01-25] MEDS: BUPIVACAINE LIPOSOME 266 MG/20 ML VIAL INJ (13:41)
--- NOTE | 2023-01-25 14:32 | P.OP_ITS ---
Operative Date/Time/Diagnoses Date of procedure: 01/25/23 Time of procedure: 14:32 Pre-op diagnosis: Left knee osteoarthritis Post-op diagnosis: same Procedure & Clinicians Procedure: Left total knee arthroplasty Same procedure as scheduled: Yes Indications: The patient has had progressively worsening left knee pain with radiographic changes consistent with arthritis. Non-operative management has failed and the patient has requested total knee replacement. The risks, benefits and alternatives to surgery were discussed with the patient prior to proceeding. Risks discussed included, but were not limited to, failure to relieve pain, stiffness, infection, nerve damage, deep venous thrombosis, pulmonary embolism, stroke, coma, heart attack, permanent paralysis and , as well as the potential need for eventual revision of the prosthetic. Surgeon: Dre John Mutual Fund Manager: Rachell Brown Click Yes if Unassisted: No Anesthesia Type: Spinal, Sedation and Local Operative Notes Findings: Severe medial and moderate patellofemoral degenerative change. Closure Type: primary Specimen(s): none sent Prosthetic devices, grafts, tissues, transplants, or devices: Implants used in this procedure were manufactured by the [employer] and included the BCS II Journey total knee replacement with a size 8 left cobalt chromium femur, size 7 non porous tibial base plate, a 10 mm cross- linked polyethylene tibial insert and a 35 mm oval Tessy II patella. Applied: implant(s) Estimated Blood Loss (mL): 25 Blood products transfused: none Tourniquet time (min): 49 Procedure in detail: The patient was seen in the pre-operative area, where the left knee was identified as the operative site and this was marked with my initials. The patient received pre-operative antibiotics, and was taken to the operating room and placed on the operative table in the supine position. After satisfactory anesthesia, a multimedia services manager out was performed. The left leg was encircled with a tourniquet about the proximal thigh, and the leg was prepared from the toes to the tourniquet with ChloroPrep in the usual fashion and draped through sterile drapes. The leg was elevated and exsanguinated with Eschmark bandage and the tourniquet inflated to 250 mmHg pressure. The knee was approached through an approximately 18 cm incision centered over the patella and carried into the knee through a medial parapatellar arthrotomy. The anterior osteophytes and soft tissues were removed. The rotational landmarks of Geneva's line and the transepicondylar axis were marked on the femur with electrocautery, and intramedullary guide holes for the femur and tibia were created. The distal femoral cut was made in 6 degrees of valgus using the intramedullary guide at the primary cut setting. The proximal tibial cut was then made using the intramedullary guide, taking 9 mm of bone off the less involved side. The extension gap was checked and the rotation of the femoral component confirmed with the gap balancing blocks. The anterior, posterior and chamfer cuts were then made. The posterior osteophytes and soft tissues were then removed. The posterior capsule was injected with part of a mixture of 60 ml 0.25% Marcaine mixed with 20 ml Exparel and 4 mg of morphine for post-operative pain control. The remainder of this mixture was injected into the capsule and subcutaneous tissues during cement curing. The tibia was prepared with the rotation set by an extra medullary guide. Trial tibial and femoral components were then placed and the intercondylar notch cut through the femoral trial. Range of motion was 0-135 degrees, with good stability throughout the range. The patella was then cut to accommodate the patellar prosthetic. There was no need for a lateral release. The trials were then removed, and the femoral hole plugged with a bone plug. The bone was prepared with pulsatile lavage, and dried with a sponge. Cement was ap plied and the final prosthetics placed. Excess cement was removed during and after cement curing. After confirming there was no extruded cement posteriorly, the final tibial insert was placed. The knee was copiously irrigated and the tourniquet deflated. Hemostasis was obtained. The capsule was closed with interrupted # 2 polyester sutures. The subcutaneous layer was closed with 3-0 Vicryl, and the skin with a running 3-0 V-Lock suture and Dermabond. An Aquacel Ag dressing was applied and the patient was taken to recovery having tolerated the procedure well. A skilled surgical training specialist was required during this procedure to provide positioning, exposure and retraction to prevent damage to vital structures. Without the services of Ms Brown, the procedure could not have been completed in a safe, expedient fashion. Complications: none Post-operative Condition: stable Disposition: PACU Plan for aftercare: The patient will be maintained on a standard total knee replacement protocol with weight bearing as tolerated. The patient will receive aspirin and sequential compression devices for DVT prophylaxis. The patient will be discharged home when safe for the home environment.
[2023-01-25] MEDS: LACTATED RINGERS 1,000 ML 100 ML IV (15:38)
--- NOTE | 2023-01-25 17:45 | PT.IIE ---
Current Diagnoses Unilateral primary osteoarthritis, left knee (01/25/23) Surgery Performed Operation Date: 01/25/23 12:30 Actual Procedures p Total Knee Arthroplasty(Left) - Dre John MD Surgical History (Last Updated 01/18/23 @ 13:31 by Selam Linton RN) Anesthesia H/O vasectomy History of appendectomy History of cataract removal with insertion of prosthetic lens (~2014) History of partial knee replacement (~2011) History of tonsillectomy and adenoidectomy Status post hernia repair (~2008) Status post knee surgery (~1987) Medical History (Last Updated 03/20/21 @ 22:30 by Elissa Appiah) Acne (~1951) Acute appendicitis Chicken pox (~1947) Chronic back pain Measles (~1939) Mumps (~1942) Postoperative ileus Rubella (~1952) Seasonal allergies (~1959) Shoulder pain Tinnitus Physical Therapy Inpatient Evaluation/Re-Eval M1 PT/OT-IP Prior Functional Status Start: 01/25/23 17:44 Freq: NEEDED Status: Active Protocol: Document 01/25/23 17:45 DLM (Rec: 01/25/23 17:57 DLM [id number]) Medical Review Prior Functional Status Medical History Reviewed Yes Diet/Fluid Consistency Regular Communication WNL Mobility and Gait Independent without device, very active Activities of Daily Living and IADL's Independent Social History Household Members spouse Living Arrangements House Number of Floors (Floors) Two Floors Number of Stairs To Enter/Railing? he can stay on main level, no steps to enter house Home Environment Standard Height Toilet,Walk in Shower Home Equipment Front Wheel Walker,Straight Cane,Raised Toilet Seat w/ Armrests Employment Status Retired M2 PT-IP Current Condition Start: 01/25/23 17:44 Freq: NEEDED Status: Active Protocol: Document 01/25/23 17:45 DLM (Rec: 01/25/23 17:57 DLM [id number]) Physical Therapy Current Condition Current Condition Evaluation Date 01/25/23 Treatment Diagnosis left TKA, impaired mobility/ gait Onset Date 01/25/23 M3 PT-IP Subjective Start: 01/25/23 17:44 Freq: NEEDED Status: Active Protocol: Document 01/25/23 17:45 DLM (Rec: 01/25/23 17:57 DLM [id number]) Subjective Physical Therapy Visit Type Type Initial Evaluation Visit Start Time 17:00 Visit Stop Time 17:45 Total Visit Minutes 45 Number of MATCHER LEATHER PARTS Visits 0 Physical Therapy Visit Comments Patient Comments He reports getting tired today with short distance of gait. Patient Goals Discharge home Therapy Pain Assessment Pain When Pain Assessed After Treatment Pain Present Pain Present Pain Reported Location Left Knee Intensity 6 Scale Used Numeric (0 - 10) Description Aching,With Movement Pain Management Techniques Apply Cold,Elevation M4 PT-IP Mobility and Gait Start: 01/25/23 17:44 Freq: NEEDED Status: Active Protocol: Document 01/25/23 17:45 DLM (Rec: 01/25/23 17:57 DL [id number]) PT-Bed Mobility Assessment Supine to Sit Supine to Sit Independent Sit to Supine Sit to Supine Independent Scooting Scooting to Edge of Bed Independent Scooting Up and Down in Bed Independent PT-Transfer Assessment Sit to and From Stand Sit to and from Stand Standby Assistance,Use of Upper Extremities Equipment Transfer Assistive Device Gait Belt,Front Wheeled Walker Transfers Transfer Destination Bed Transfer Technique Stand Step Pivot Transfer Ability Level of Assist Standby Assistance,Use of Upper Extremities Comments Mobility Comments education provided to use UE support during sit-stand Gait Assessment Gait Gait Assistance Required: Standby Assistance Distance (Feet) 45 Able to Maintain Weight Bearing Status Yes During Gait Assistive Devices Assistive Device Gait Belt,Front Wheeled Walker Gait Deviations General Gait Pattern Antalgic Factors Limiting Gait Function Factors Limiting Gait Function Decreased Activity Tolerance, Decreased Strength,Limited Range of Motion,Pain,Poor Balance Comments Gait Comments With initial gait in the room pt reported feeling fatigued but no other symptoms. During second gait trial with pt progressing out to the goins he got light-headed and was pale . He returned to room and sat on edge of bed where BP 113/63 , HR 58, O2 sat 100% Stair Climbing Assessment Comments Stair Climbing Comments no stairs to enter house PT-Balance Assessment Sitting Balance and Reactions Static Sitting Balance Ability Normal Dynamic Sitting Balance Ability Normal Standing Balance and Reactions Static Standing Balance Ability Good Dynamic Standing Balance Ability Good Device Used FWW M5 PT-IP Objective Assessments Start: 01/25/23 17:44 Freq: NEEDED Status: Active Protocol: Document 01/25/23 17:45 DLM (Rec: 01/25/23 17:57 DL [id number]) Orientation Orientation/Cognition Level of Alertness Alert Orientation Name,Age,Birthday,Month,Date, Year,Day of Week,Place, Situation Language Function Ability No Deficits Noted Safety Awareness Understands Safety Issues Memory Description No Deficits Noted Gross Range of Motion Upper Extremity ROM Assessment Within Functional Limits Lower Extremity ROM Assessment Left Impaired Impairments post-op TKA, tolerating 0-90+ at this time for AROM Strength Upper Extremity Strength Assessment Within Functional Limits Lower Extremity Strength Assessment Left Impaired Hip able to do SLR Knee ext 3-/5 Ankle DF 4+/5 Coordination Assessment Gross Coordination Gross Coordination WNL Sensation Assessment Sensation Gross Sensation Left LE Impaired Comments Sensation Comments mild numbness in foot post-op but none higher, carola wrap in place Muscle Tone Muscle Tone WNL Yes M6 PT-IP Treatment Start: 01/25/23 17:44 Freq: NEEDED Status: Active Protocol: Document 01/25/23 17:45 DLM (Rec: 01/25/23 17:57 DL [id number]) Physical Therapy Treatment Exercises Exercises Ankle Pumps,Quad Sets,Heel Slides,Straight Leg Raises, Short Arc Quads,Passive Knee Extension Hang,Seated Knee Flexion/Extension Education Education Provided Weight Bearing Status,Post-Op Packet,Safety Other Treatments Other Treatment Performed pt performed 3-5 reps of each exercise this visit His is present and observed treatment session M7 PT-IP Assessment and Plan Start: 01/25/23 17:44 Freq: NEEDED Status: Active Protocol: Document 01/25/23 17:45 DLM (Rec: 01/25/23 17:57 DLM [id number]) PT Summary Assessment and Plan Potential Rehabilitation Potential Excellent Status of Condition at Evaluation Evolving Summary Impairments Pain,ROM,Strength,Balance, Sensation,Bed Mobility, Transfers,Gait,Activity Tolerance Assessment Summary Bacilio is alert and resting in bed after TKA. He is eager to go home. He demonstrates good functional strength for mobility and gait. His gait pattern with the FWW is safe. His ability to progress his distance of gait was limited by light-headedness and a drop in blood pressure. Pt returned to bed to rest. Notified his nurse about drop in BP. Pt is not safe to discharge home at this time due to drop in BP. Anticipate he will be safe to discharge home once his BP is stable during mobility. He has a supportive to assist him at home. He has a FWW to use at discharge. He has his out- pt PT appointments scheduled. Goals Bed Mobility Goal Independent Transfer Goal Independent,Front Wheeled Walker Gait Goal Independent,Front Wheel Walker Gait Distance 150 feet Days to Meet Goals 2 Frequency of Treatment Frequency Of Treatment Twice a Day Treatment Plan Physical Therapy Treatment Plan Bed Mobility Training,Transfer Training,Gait Training, Therapeutic Exercise,Balance Retraining,Post Op Education, Discharge Planning,Hot or Cold Pack Other Recommendations and Next Treatment monitor BP with activity Focus Weight Bearing Status Weight Bearing Status Weight Bear as Tolerated Allowed Weight Bearing Amount (enter % left LE or #) (%) Recommendations To Nursing Amount of Assist Needed Standby Assistance Discharge Recommendations PT Discharge Recommendations Home with Assistance, Outpatient PT Other Discharge Recommendations plans to go home with pt light-headed and has drop in BP with gait this visit Transportation Needs at Discharge Private Vehicle
[2023-01-25] MEDS: IBUPROFEN 400 MG TABLET PO ×2 (17:54→21:08)
[2023-01-25] MEDS: ACETAMINOPHEN 325 MG TABLET 650 MG PO (17:55)
--- NOTE | 2023-01-25 18:51 | PC.NURSE ---
Pt up with PT and was wobbly and orthostatic and felt unsafe going home. Contacted Dr. John to notify of Pt status and order for cancel d/c was given.
[2023-01-25] MEDS: ASPIRIN EC 81 MG TABLET PO (21:08)
[2023-01-25] MEDS: DOCUSATE 100 MG CAPSULE PO (21:08)
[2023-01-26] MEDS: ACETAMINOPHEN 325 MG TABLET 650 MG PO ×2 (01:21→06:02)
[2023-01-26] MEDS: IBUPROFEN 400 MG TABLET PO ×3 (01:21→08:29)
[2023-01-26] MEDS: LACTATED RINGERS 1,000 ML 100 ML IV (01:53)
[2023-01-26 02:00] VITALS: BP 126/65; PULSE 65; RESP 16; TEMP 37.1; O2SAT 92
[2023-01-26 04:20] VITALS: BP 132/63; PULSE 58; RESP 17; TEMP 36.6; O2SAT 93
[2023-01-26] MEDS: CEFAZOLIN 2 GM/100 ML PREMIX 100 ML IV (06:03)
[2023-01-26 06:12] LABS: Hematocrit 37.8 % (41-53); Hemoglobin 12.8 g/dL (13.5-17.5)
--- NOTE | 2023-01-26 06:40 | PM.DS.1 ---
History of Present Illness History of Present Illness Date Patient Seen: 01/26/23 Time Patient Seen: 06:40 Chief complaint: OPB Narrative: Operative Date/Time/Diagnoses Date of procedure: 01/25/23 Time of procedure: 14:32 Pre-op diagnosis: Left knee osteoarthritis Post-op diagnosis: same Procedure & Clinicians Procedure: Left total knee arthroplasty Same procedure as scheduled: Yes Indications: The patient has had progressively worsening left knee pain with radiographic changes consistent with arthritis. Non-operative management has failed and the patient has requested total knee replacement. The risks, benefits and alternatives to surgery were discussed with the patient prior to proceeding. Risks discussed included, but were not limited to, failure to relieve pain, stiffness, infection, nerve damage, deep venous thrombosis, pulmonary embolism, stroke, coma, heart attack, permanent paralysis and , as well as the potential need for eventual revision of the prosthetic. Surgeon: Dre John Supervisor Malt House: Rachell Brown Click Yes if Unassisted: No Anesthesia Type: Spinal, Sedation and Local Operative Notes Findings: Severe medial and moderate patellofemoral degenerative change. Closure Type: primary Specimen(s): none sent Prosthetic devices, grafts, tissues, transplants, or devices: Implants used in this procedure were manufactured by the [employer] and included the BCS II Journey total knee replacement with a size 8 left cobalt chromium femur, size 7 non porous tibial base plate, a 10 mm cross-linked polyethylene tibial insert and a 35 mm oval Tessy II patella. Applied: implant(s) Estimated Blood Loss (mL): 25 Blood products transfused: none Tourniquet time (min): 49 Discharge Providers Provider Discharge Date: 01/26/23 Primary care physician: Cory Snyder MD Consults: 01/25/23 15:28 Consult to Discharge Planning Routine Comment: Consult to Physical Therapy Evaluate & Treat Comment: Physician Instructions: postop TKA protocol Discharge provider: Lou Baker PA-C Summary Hospital Course Discharge Diagnosis: Left knee osteoarthritis, s/p left total knee arthroplasty Hospital Course: Mr Aragon's hospital course was unremarkable. On POD# 1, he expressed disappointment at not being able to go home the day of surgery; he would like to go home if he does well w/ PT later in the morning. He was eating and voiding without difficulty. His pain was well-controlled with APAP and IBPN only. Exam Vital Signs (past 8 hours): - 01/26/23 02:00 01/26/23 04:20 Temperature 98.7 F 97.8 F Pulse Rate 65 58 L Respiratory Rate 16 17 Blood Pressure 126/65 132/63 Pulse Oximetry 92 93 Oxygen Flow Rate 0 0 Oxygen Delivery Method Room Air Oxygen Flow Rate 0 Narrative Exam Narrative: 5/5 strength in hip flexors, quadriceps, DF, PF, EHL on left. Sensation to light touch intact throughout LLE. Calves soft, compressible, nontender and without palpable cords or masses. Objective Labs 01/26/23 05:35 Labs: Laboratory Results - last 24 hr 01/25/23 01/26/23 10:55 05:35 Hgb 12.8 L Hct 37.8 L SARS-CoV-2 (PCR) Negative [facility] Medical History (Updated 05/12/22 @ 08:28 by Zack Nguyen MD) Acne (~1951) Acute appendicitis Chicken pox (~1947) Chronic back pain Measles (~1939) Mumps (~1942) Postoperative ileus Rubella (~1952) Seasonal allergies (~1959) Shoulder pain Tinnitus Surgical History (Updated 01/18/23 @ 13:31 by Selam Linton RN) Anesthesia H/O vasectomy History of appendectomy History of cataract removal with insertion of prosthetic lens (~2014) History of partial knee replacement (~2011) History of tonsillectomy and adenoidectomy Status post hernia repair (~2008) Status post knee surgery (~1987) Family History Father Hypertension High cholesterol Stroke Skin cancer Mother Hypertension High cholesterol Dementia Colon cancer Social History (Updated 02/11/22 @ 19:20 by Cory Snyder MD) household members: spouse education level: other Smoking Status: Never smoker alcohol intake: current Discharge Assessment & Plan Assessment and Plan Assessment: Left knee osteoarthritis, s/p left total knee arthroplasty Plan of Treatment: Discharge home after PT if PT agrees. Multimodal pain control, ASA BID for VTE prophylaxis, outpt PT, f/u in office in 2 weeks. Discharge Plan Discharge Plan Patient Disposition: Home Discharge orders & Medications Discharge Orders: Discharge (Order); Ordered 01/26/23 Ordered By: Lou Baker Prescriptions: New acetaminophen 325 mg Tablet 650 mg PO Q6HR Qty: 250 0RF aspirin 81 mg Tablet,Delayed Release (Dr/Ec) 81 mg PO BID Qty: 84 0RF ibuprofen 400 mg Tablet 400 mg PO Q4HR Qty: 250 0RF oxycodone 5 mg Tablet 5 mg PO Q4H PRN (Reason: Pain, Moderate (4-6)) Qty: 40 0RF Continued Multi-Day with Iron 18-400 mg-mcg Tablet 1 tab PO DAILY Follow up/Referrals: Cory Snyder MD [Primary Care Provider] - Dre John MD [Physician] - As previously scheduled (Follow up w/ Lou Baker PA-C, on 02/10/2023 @ 11:30 am at [facility] in [place].) Diet/Activity/Treatments Diet: Diet as Tolerated and Regular Activity: Walk frequently! You may bear weight as tolerated on your left leg. Cold/Heat Therapy: Ice to knee as needed for pain. Skin/Wound/Dressing Care Report to your healthcare provider any signs of infection, such as:: chills, fever, night sweats, unusual drainage and unusual redness Dressing: May remove MARVA wrap and shower on 01/28/2023. Leave Aquacel dressing in place until follow up in office. No bathing or otherwise soaking incision. Call the office if the dressing becomes saturated inside. Visit Report/Discharge Packet Instructions: DI for Knee Replacement Stand Alone Forms: Patient Portal/API, Surgery Discharge Discharge Data Primary Care Provider: Cory Snyder Attending Provider: Dre John
[2023-01-26 08:16] VITALS: BP 113/70; PULSE 52; RESP 17; TEMP 36.6; O2SAT 93
[2023-01-26] MEDS: ASPIRIN EC 81 MG TABLET PO (08:29)
[2023-01-26] MEDS: DOCUSATE 100 MG CAPSULE PO (08:29)
--- NOTE | 2023-01-26 11:59 | CM.DANOTE ---
Discharge Planning/Care Management CM Discharge Assessment Start: 01/26/23 11:55 Freq: Status: Active Protocol: Document 01/26/23 11:56 YARELY (Rec: 01/26/23 11:59 YARELY [id number]) Discharge Planning Assessment Assigned Hardboard Coating Machine Operator STEVEN Haas DPOA/Assigned Designee Name Yessi Aragon, spouse Contact Information home [phone] cell Advance Directives? No Advance Directives on File No History Provided By Patient,Medical Record Prior Living Arrangements House Household Members spouse Type of transporation used prior to Drives own vehicle admit Independent with ADL's Yes Is patient alert and oriented? Yes Patient/Family Preference OP PT Therapy Barriers to Discharge No Comment Patient is an 87 yo male, resident of [place]. POD 1 s /p left total knee arthroplasty by Dr John. Patient planned to return home w/spouse to assist and has been cleared by therapy for this plan. No CM needs identified Plan: Home w/spouse and outpatient PT Discharge Plan Home Transportation Arrangement Spouse Referrals Initiated None needed
== END 2023-01-26 09:24 | disposition home or self-care (01) ==
LOC: OR 10:24 → AC 10:24
PROVIDERS: PCP Student in an Organized Health Care Education/Training Program; Referring Provider Orthopaedic Surgery; Visit Provider Orthopaedic Surgery
PROC: 0SRD0JZ Replacement of Left Knee Joint with Synthetic Substitute, Open Approach (ICD-10-PCS; CPT 27447; principal; 2023-01-25 12:30)
DX: M17.12 Unilateral primary osteoarthritis, left knee (principal); Z20.822 Contact with and (suspected) exposure to COVID-19
CPT/HCPCS: 27447; 36415; 73560; 85014; 85018; 87635; 97110; 97162; C1776; C9803; C9290; J0171; J0690; J2250; J2270; J2704; J3010

== ENCOUNTER → 2024-07-03 14:13 | Outpatient (CLI) | payer MEDICARE, SELFPAY ==
[2023-01-25 18:03] VITALS: BMI 21.7
[2024-07-03 15:00] LABS: Hemoglobin 14.8 g/dL (13.5-17.5); Mean Corpuscular HGB Conc 33.8 % (30-36); Mean Corpuscular Hemoglobin 33.1 PG (26-34); Platelet Count 224 X10^3/uL (150-400); Red Blood Cell Count 4.49 X10^6/uL (4.5-5.9); Red Cell Distribution Width 13.7 % (11.6-14.8); White Blood Cell Count 4.9 X10^3/uL (4.5-11.0)
[2024-07-03 15:22] LABS: Alanine Aminotransferase 17 IU/L (<50); Albumin 4.3 g/dL (3.5-5.0); Albumin Globulin Ratio 1.7 (1.0-2.8); Alkaline Phosphatase 63 U/L (38-126); Aspartate Aminotransferase 35 IU/L (17-59); BUN Creatinine Ratio 25.3 (6-22); Bilirubin Total 0.7 mg/dL (0.2-1.3); Blood Urea Nitrogen 21 mg/dL (9-20); Calcium 9.5 mg/dL (8.4-10.2); Carbon Dioxide 23 mmol/L (22-32); Chloride 106 mmol/L (98-107); Cholesterol 207 mg/dL (140-199); Estimated Glomerular Filt Rate > 60 mL/min (>60); Globulin 2.5 g/dL (1.7-4.1); Glucose 108 mg/dL (80-110); HEMOLYSIS < 15 (0-50); Sodium 139 mmol/L (137-145); Total Protein 6.8 g/dL (6.3-8.2); Triglycerides 65 mg/dL (35-150)
[2024-07-03 15:29] LABS: HDL Cholesterol 106 mg/dL (40-60); LDL Cholesterol Calculated 88 mg/dL (<100)
[2024-07-03 15:47] LABS: TSH w/ Reflex to FT4 2.46 uIU/mL (0.47-4.68)
== END ==
PROVIDERS: PCP Internal Medicine; Referring Provider Internal Medicine; Visit Provider Internal Medicine
DX: G45.4 Transient global amnesia (principal); E78.2 Mixed hyperlipidemia
CPT/HCPCS: 36415; 80053; 80061; 84443; 85027